=== PATIENT | female | born 1970 | race Caucasian/White ===

== ENCOUNTER 2018-12-14 12:40 | Observation (INO) | payer SELFPAY ==
[2018-12-14 13:09] LABS: Absolute Lymphocytes (CBC) 1.9 K/uL (0.7-4.9); Basophils % 0.5 % (0-1.3); Eosinophils % 0.9 % (0-4.4); Hematocrit 38.8 % (36.0-45.0); Lymphocytes % 27.1 % (15.3-44.8); MPV 9.3 fL (7.6-11.3); Monocytes % 7.7 % (3.3-12.3); RBC Red Blood Cell Count 4.02 M/uL (3.86-4.86)
[2018-12-14 13:10] LABS: Protime INR 0.89
--- NOTE | 2018-12-14 13:11 | RAD REPORT ---
EXAM DESCRIPTION: RAD - Chest Single View - 12/14/2018 1:06 pm CLINICAL HISTORY: CHEST PAIN Chest pain. COMPARISON: No comparisons FINDINGS: Portable technique limits examination quality. The lungs are grossly clear. The heart is normal in size. No displaced fractures. IMPRESSION: No acute intrathoracic process suspected.
[2018-12-14 13:22] LABS: ALT/SGPT 24 U/L (12-78); AST/SGOT 15 U/L (15-37); Albumin 3.3 g/dL (3.4-5.0); Alkaline Phosphatase 70 U/L (45-117); BUN Blood Urea Nitrogen 13 mg/dL (7-18); Bicarbonate 24 mmol/L (21-32); Bilirubin Direct 0.1 mg/dL (0-0.2); Bilirubin Total 0.4 mg/dL (0.2-1.0); Glucose Level 90 mg/dL (74-106); Magnesium 2.2 mg/dL (1.8-2.4); NT PRO-BNP 337 pg/mL (<125); Potassium 4.3 mmol/L (3.5-5.1); Protein, Total 7.1 g/dL (6.4-8.2); Sodium Level 141 mmol/L (136-145); Troponin (Emerg Dept Use Only) < 0.02 ng/mL (0.0-0.045)
--- NOTE | 2018-12-14 15:27 | ER ---
Nurse's Notes [facility] Name: Amara Allen Age: 48 yrs Sex: Female : 1970 Arrival Date: 12/14/2018 Time: 12:43 Bed 7 Private MD: Diagnosis: Chest pain, unspecified Presentation: 12/14 12:44 Presenting complaint: EMS states: Substernal chest pain and SOB upon waking 30 mins hb ago. Pain started in back then radiated to chest. 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 Hx of mitral valve prolapse and cardiac stents x 3. Transition of care: patient was not received from another setting of care. Onset of symptoms was December 14, 2018. Risk Assessment: Do you want to hurt yourself or someone else? Patient reports no desire to harm self or others. Initial Sepsis Screen: Does the patient meet any 2 criteria? No. Patient's initial sepsis screen is negative. Does the patient have a suspected source of infection? No. Patient's initial sepsis screen is negative. Care prior to arrival: Medication(s) given: ASA, 325 mg, Nitroglycerin, x 2, IV initiated. 18 GA, in the right antecubital area, Glucose check: 121. 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 - Social history:: Smoking status: Patient uses tobacco products, smokes one pack cigarettes per day. - Ebola Screening: : No symptoms or risks identified at this time. Screenin:45 Abuse screen: Denies threats or abuse. Denies injuries from another. Nutritional sv screening: No deficits noted. Tuberculosis screening: No symptoms or risk factors identified. Fall Risk None identified. Assessment: 12:45 General: Appears in no apparent distress. Behavior is calm, cooperative. Pain: hb Complains of pain in back and chest Pain radiates to chest Pain began 30 min ago. Neuro: Level of Consciousness is awake, alert, obeys commands, Oriented to person, place, time, situation. Cardiovascular: Heart tones S1 S2 present Capillary refill < 3 seconds Patient's skin is warm and dry. Respiratory: Airway is patent Respiratory effort is even, unlabored, Respiratory pattern is regular, symmetrical, Breath sounds are clear bilaterally. GI: No signs and/or symptoms were reported involving the gastrointestinal system. : No signs and/or symptoms were reported regarding the genitourinary system. EENT: No signs and/or symptoms were reported regarding the EENT system. Derm: Skin is intact, is healthy with good turgor, Skin is pink, warm \T\ dry. normal. Musculoskeletal: No signs and/or symptoms reported regarding the musculoskeletal system. 13:30 Reassessment: Patient appears in no apparent distress at this time. Patient and/or hb family updated on plan of care and expected duration. Pain level reassessed. Patient is alert, oriented x 3, equal unlabored respirations, skin warm/dry/pink. 14:30 Reassessment: Patient appears in no apparent distress at this time. Patient and/or hb family updated on plan of care and expected duration. Pain level reassessed. Patient is alert, oriented x 3, equal unlabored respirations, skin warm/dry/pink. 15:30 Reassessment: Pt c/o pain 8/10, ROZINA Lee notified at bedside, nitro x1 administered as hb ordered. Admission ordered, awaiting room assignment at this time. Family remains at bedside. 16:27 Reassessment: Patient appears in no apparent distress at this time. Patient and/or hb family updated on plan of care and expected duration. Pain level reassessed. Patient is alert, oriented x 3, equal unlabored respirations, skin warm/dry/pink. Vital Signs: 12:48 BP 164 / 94; Pulse 62; Resp 17; Temp 97.9; Pulse Ox 100% on R/A; Weight 62.14 kg; hb Height 5 ft. 1 in. (154.94 cm); Pain 9/10; 13:45 BP 144 / 81; Pulse 62; Resp 15; Pulse Ox 100% on R/A; Pain 5/10; hb 14:56 BP 163 / 78; Pulse 63; Resp 15; Pulse Ox 100% on R/A; hb 16:00 BP 129 / 63; Pulse 66; Resp 16; Pulse Ox 100% ; Pain 4/10; hb 12:48 Body Mass Index 25.89 (62.14 kg, 154.94 cm) hb ED Course: 12:40 Initial lab(s) drawn, by me, sent to lab. Maintain EMS IV. Dressing intact. Good blood sv return noted. Site clean \T\ dry. Gauge \T\ site: 18G R AC. 12:43 Patient arrived in ED. hb 12:44 Laureen Carranza, RN is Primary Nurse. hb 12:45 Jesus Fletcher PA is PHCP. jr8 12:45 Adalberto Agosto MD is Attending Physician. jr8 12:45 Patient maintains SpO2 saturation greater than 95% on room air. hb 12:45 Patient has correct armband on for positive identification. Placed in gown. Bed in low sv position. Call light in reach. Side rails up X 1. 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 Pulse ox on. NIBP on. Door closed. Warm blanket given. Head of bed elevated. 12:48 Triage completed. hb 12:48 Arm band placed on. hb 13:05 X-ray completed. Portable x-ray completed in exam room. Patient tolerated procedure mh1 well. 13:06 XRAY Chest (1 view) In Process Unspecified. EDMS 13:32 Awaiting re-evaluation by ER provider. sv 15:26 Theresa Heard MD is Hospitalizing Provider. jr8 16:27 No provider procedures requiring assistance completed. Patient admitted, IV remains in hb place. Administered Medications: 15:30 Drug: Nitroglycerin 0.4 mg Route: Sublingual; hb Outcome: 15:27 Decision to Hospitalize by Provider. jr8 16:27 Admitted to [facility] hb 16:27 Condition: stable 16:27 Instructed on the need for admit, Demonstrated understanding of instructions. 16:35 Patient left the ED. hb Signatures: Dispatcher [employer] EDMS Filomena West, DIANE RN Agata Mcknight 1 Jesus Fletcher PA PA jr8 Laureen Carranza RN RN hb Corrections: (The following items were deleted from the chart) 12:52 12:44 Care prior to arrival: Medication(s) given: ASA, 325 mg, Nitroglycerin, x 2, IV hb initiated. 20 GA, in the right antecubital area, Glucose check: 121 hb 14:49 13:45 BP 144 / 81; Pulse 162bpm; Resp 15bpm; Pulse Ox 100% RA; Pain 5/10; hb hb
--- NOTE | 2018-12-14 15:27 | EDPHYS ---
Physician Documentation [facility] Name: Amara Allen Age: 48 yrs Sex: Female : 1970 Arrival Date: 12/14/2018 Time: 12:43 Bed 7 Private MD: ED Physician Adalberto Agosto HPI: 12/14 15:24 This 48 yrs old Female presents to ER via EMS with complaints of Chest Pain. jr8 15:24 The patient or guardian reports chest pain that is located primarily in the anterior jr8 chest wall, left. Onset: acutely, today. The pain radiates to the left scapula. Associated signs and symptoms: Pertinent positives: shortness of breath. The chest pain is described as a heaviness, a pressure, sharp. Duration: The patient or guardian reports a single episode, that is still ongoing. Modifying factors: The symptoms are alleviated by nothing. the symptoms are aggravated by nothing. Severity of pain: At its worst the pain was moderate in the emergency department the pain has improved mildly. EMS care prior to arrival includes: aspirin, nitroglycerin, x 1, with partial relief of the chest pain. The patient has experienced a previous episode. The patient has not recently seen a physician. 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 - Social history:: Smoking status: Patient uses tobacco products, smokes one pack cigarettes per day. - Ebola Screening: : No symptoms or risks identified at this time. ROS: 15:24 Eyes: Negative for injury, pain, redness, and discharge, ENT: Negative for injury, jr8 pain, and discharge, Neck: Negative for injury, pain, and swelling, Abdomen/GI: Negative for abdominal pain, nausea, vomiting, diarrhea, and constipation, Back: Negative for injury and pain, MS/Extremity: Negative for injury and deformity, Skin: Negative for injury, rash, and discoloration, Neuro: Negative for headache, weakness, numbness, tingling, and seizure. 15:24 Cardiovascular: Positive for chest pain, Negative for edema, orthopnea, palpitations, paroxysmal nocturnal dyspnea. 15:24 Respiratory: Positive for shortness of breath. Exam: 15:24 Eyes: Pupils equal round and reactive to light, extra-ocular motions intact. Lids and jr8 lashes normal. Conjunctiva and sclera are non-icteric and not injected. Cornea within normal limits. Periorbital areas with no swelling, redness, or edema. ENT: Nares patent. No nasal discharge, no septal abnormalities noted. Tympanic membranes are normal and external auditory canals are clear. Oropharynx with no redness, swelling, or masses, exudates, or evidence of obstruction, uvula midline. Mucous membranes moist. Neck: Trachea midline, no thyromegaly or masses palpated, and no cervical lymphadenopathy. Supple, full range of motion without nuchal rigidity, or vertebral point tenderness. No Meningismus. Chest/axilla: Normal chest wall appearance and motion. Nontender with no deformity. No lesions are appreciated. Cardiovascular: Regular rate and rhythm with a normal S1 and S2. No gallops, murmurs, or rubs. Normal PMI, no JVD. No pulse deficits. Respiratory: Lungs have equal breath sounds bilaterally, clear to auscultation and percussion. No rales, rhonchi or wheezes noted. No increased work of breathing, no retractions or nasal flaring. Abdomen/GI: Soft, non-tender, with normal bowel sounds. No distension or tympany. No guarding or rebound. No evidence of tenderness throughout. Back: No spinal tenderness. No costovertebral tenderness. Full range of motion. Skin: Warm, dry with normal turgor. Normal color with no rashes, no lesions, and no evidence of cellulitis. MS/ Extremity: Pulses equal, no cyanosis. Neurovascular intact. Full, normal range of motion. Neuro: Awake and alert, GCS 15, oriented to person, place, time, and situation. Cranial nerves II-XII grossly intact. Motor strength 5/5 in all extremities. Sensory grossly intact. Cerebellar exam normal. Normal gait. Vital Signs: 12:48 BP 164 / 94; Pulse 62; Resp 17; Temp 97.9; Pulse Ox 100% on R/A; Weight 62.14 kg; hb Height 5 ft. 1 in. (154.94 cm); Pain 9/10; 13:45 BP 144 / 81; Pulse 62; Resp 15; Pulse Ox 100% on R/A; Pain 5/10; hb 14:56 BP 163 / 78; Pulse 63; Resp 15; Pulse Ox 100% on R/A; hb 16:00 BP 129 / 63; Pulse 66; Resp 16; Pulse Ox 100% ; Pain 4/10; hb 12:48 Body Mass Index 25.89 (62.14 kg, 154.94 cm) hb MDM: 12:45 Patient medically screened. jr8 15:24 The patient was not given aspirin in the Emergency Department. Administered by EMS. jr8 Data reviewed: vital signs, nurses notes, lab test result(s), EKG, radiologic studies, plain films. Data interpreted: monitor tech: rate is 64 beats/min, rhythm is normal sinus rhythm, regular, with no ectopy, Interpretation: normal rate, normal rhythm, Pulse oximetry: on room air is 100 %. Interpretation: normal. Counseling: I had a detailed discussion with the patient and/or guardian regarding: the historical points, exam findings, and any diagnostic results supporting the discharge/admit diagnosis, lab results, radiology results, the need for further work-up and treatment in the hospital. ED course: Dr. Heard consulted and will see patient . 12/14 12:44 Order name: Basic Metabolic Panel; Complete Time: 13:43 [facility] 12/14 12:44 Order name: CBC with Diff; Complete Time: 13:16 [facility] 12/14 12:44 Order name: LFT's; Complete Time: 13:43 [facility] 12/14 12:44 Order name: Magnesium; Complete Time: 13:43 [facility] 12/14 12:44 Order name: NT PRO-BNP; Complete Time: 13:43 12/14 12:44 Order name: PT-INR; Complete Time: 13:16 [facility] 12/14 12:44 Order name: Troponin (emerg Dept Use Only); Complete Time: 13:43 [facility] 12/14 12:44 Order name: XRAY Chest (1 view); Complete Time: 13:16 [facility] 12/14 12:44 Order name: EKG; Complete Time: 12:47 [facility] 12/14 12:44 Order name: Cardiac monitoring; Complete Time: 13:31 [facility] 12/14 12:44 Order name: EKG - Nurse/Tech; Complete Time: 13:31 tr5 12/14 12:44 Order name: IV Saline Lock; Complete Time: 13:32 tr5 12/14 12:44 Order name: Labs collected and sent; Complete Time: 13:32 tr5 12/14 12:44 Order name: O2 Per Protocol; Complete Time: 13:32 tr5 12/14 12:44 Order name: O2 Sat Monitoring; Complete Time: 13:32 tr5 Administered Medications: 15:30 Drug: Nitroglycerin 0.4 mg Route: Sublingual; hb Disposition: 17:15 Co-signature as Attending Physician, Adalberto Agsoto MD I agree with the assessment and kdr plan of care. Disposition: 12/14/18 15:27 Hospitalization ordered by Theresa Heard for Observation. Preliminary diagnosis is Chest pain, unspecified. - Bed requested for Telemetry/MedSurg (observation). - Status is Observation. hb - Condition is Stable. - Problem is new. - Symptoms have improved. UTI on Admission? No Signatures: Dispatcher [employer] EDPA Adalberto Agosto MD MD [facility] Anjelica Lentz ms Jesus Fletcher PA PA jr8 Laureen Carranza RN RN Jcarlos Sellers RN RN tr5 Corrections: (The following items were deleted from the chart) 16:06 15:27 Hospitalization Ordered by Theresa Heard MD for Observation. Preliminary diagnosis ms is Chest pain, unspecified. Bed requested for Telemetry/MedSurg (observation). Status is Observation. Condition is Stable. Problem is new. Symptoms have improved. UTI on Admission? No. jr8 16:06 16:06 12/14/2018 15:27 Hospitalization Ordered by Theresa Heard MD for Observation. ms Preliminary diagnosis is Chest pain, unspecified. Bed requested for Telemetry/MedSurg (observation). Status is Observation. Condition is Stable. Problem is new. Symptoms have improved. UTI on Admission? No. ms 16:35 16:06 12/14/2018 15:27 Hospitalization Ordered by Theresa Heard MD for Observation. hb Preliminary diagnosis is Chest pain, unspecified. Bed requested for Telemetry/MedSurg (observation). Status is Observation. Condition is Stable. Problem is new. Symptoms have improved. UTI on Admission? No. ms
[2018-12-14] MEDS ORDERED: NITROGLYCERIN 0.4 MG/TAB SL ONE (15:43)
--- NOTE | 2018-12-14 16:23 | EKG ---
Test Date: 2018-12-14 Test Time: 12:40:46 Medical Equipment Repairer: MEASUREMENT RESULTS: Intervals: Rate: 65 CO: 170 QRSD: 102 QT: 404 QTc: 420 [place]en: P: 74 CO: 170 QRS: 23 T: 29 INTERPRETIVE STATEMENTS: Normal sinus rhythm Normal ECG No previous ECG available for comparison Electronically Signed On 12-14-18 16:22:48 CDT by Joe Griffin
[2018-12-14] MEDS ORDERED: NITROGLYCERIN 0.4 MG/TAB SL PRN (16:53)
[2018-12-14] MEDS ORDERED: ACETAMINOPHEN 500 MG TAB PO PRN (16:53)
[2018-12-14] MEDS: ENOXAPARIN 40 MG/0.4 ML SQ SCH (17:16)
[2018-12-14] MEDS: METOPROLOL TAR 25 MG TAB PO SCH (20:09)
[2018-12-14] MEDS: NICOTINE 21 MG/PAT TD SCH (20:09)
[2018-12-14] MEDS: MORPHINE 2 MG/ML SYR IV PRN (20:10)
[2018-12-14] MEDS ORDERED: ATORVASTATIN 40 MG TAB PO SCH (21:00)
[2018-12-15] MEDS: MORPHINE 2 MG/ML SYR IV PRN ×2 (00:55→07:29)
--- NOTE | 2018-12-15 03:49 | HP ---
Date of Admission: 12/14/2018 Chief Complaint: Chest pain. History Of Present Illness: The patient is a 48-year-old female with past medical history of history of coronary artery disease status post multiple catheterizations, was on medical treatment; history of hypertension, not currently on any medications; smoker, who was in her usual state of health until day of admission when the patient had sudden onset of chest pain radiating to the back associated wi th shortness of breath along with nausea. The patient denies any diaphoresis or palpitations. The p atient's symptoms were intermittent, sharp. No alleviating factors. The patient did report difficul ty taking a deep breath. The patient was brought into the ER for worsening condition. In the ER, he r workup revealed negative cardiac enzymes. EKG did not show any acute changes. WBC count was mel l. Her chest x-ray was clear. The patient was given nitroglycerin x2, which helped and therefore wa s referred for admission. When seen in the ER, she was awake, alert, oriented x3. Still complaining of some shortness of breath and chest tightness. Past Medical History: Coronary artery disease, status post catheterization x2; hypertension. Allergies: NO KNOWN DRUG ALLERGIES. Medications: The patient is supposed to be on nitroglycerin patch and metoprolol, however, currently not taking any medications. Social History: The patient smokes three-quarter of a pack per year. Has been smoking since the age of 27. The patient denies any alcohol use. The patient is , has 2 kids. Independent in her activities of daily living. Family History: The patient has significant family history of cardiac-related . Both parents d ied of MIs. Sister of [place] at age of 51. Brother of [place] at age of 39. Cousin of heart- related disease at 29. The patient reports genetic cardiac disease that runs in the family. Physical Examination: Vital Signs: Blood pressure 164/94, pulse 62, respirations 17, temperature 97.9, O2 100% on room air . General: Awake, alert, oriented x3, in some mild distress, appears older than stated age. HEENT: Normocephalic, atraumatic. PERRLA. EOMI. Moist mucous membranes. Oropharynx is clear. Co njunctivae anicteric. Neck: Supple. No JVD. Trachea midline. CV: S1, S2. Regular rate and rhythm. Peripheral pulses present. Respiratory: Moving air well bilaterally. No wheezing or stridor. No use of accessory muscles. Gastrointestinal: Abdomen is soft, nontender, nondistended. Positive bowel sounds. No guarding or rigidity. Extremities: No clubbing, cyanosis, or edema. No calf tenderness. Neuro: Cranial nerves 2 through 12 intact grossly. No focal neurological deficit. Speech is normal . Sensation intact to light touch. Skin: No rashes. Normal skin turgor. Psych: Mood is somewhat anxious. Affect is congruent with mood. Insight and judgment are good. Laboratory Data: WBC 7.2, H and H of 13 and 38.8, platelets 284, neutrophils 63%, INR is 0.89. Sodi um 141, potassium 4.3, chloride 111, CO2 24, BUN 13, creatinine 0.83, glucose 90, calcium 8.8, magnes ium 2.2. Troponin less than 0.02. BNP 337. Chest x-ray shows no acute intrathoracic process. EKG shows normal sinus rhythm, rate of 65. No previous EKG for comparison. Assessment: A 48-year-old female with: 1.Chest pain, possibly unstable angina. The patient states she has had a cardiac cath previously wa s found to have some blockage, however, did not have any stents placed. Used to see Dr. Mendez in [place]. Last heart catheterization was about 2 years ago. The patient is not currently on any medi cations at home. Did have some improvement with nitroglycerin. Continues to complain of some shortn ess of breath. We will check D-dimer to evaluate for possible pulmonary embolism. We will start her on chest pain guidelines, consult Cardiology, obtain echocardiogram. The patient has strong family history with multiple first-degree relatives with premature related to [place]. The patient has HEA RT score of 4. The patient is a smoker, has hypertension, has positive family history, age is 48. 2.Essential hypertension. We will start on ACOSTA inhibitor and beta-berlin. 3.Hyperchloremia. 4.History of coronary artery disease status post catheterization. Plan: We will admit to Med/Surg, place as observation. /WENDY Voice ID: [id number]
[2018-12-15 06:11] LABS: Absolute Lymphocytes (CBC) 2.9 K/uL (0.7-4.9); Basophils % 0.5 % (0-1.3); Eosinophils % 1.3 % (0-4.4); Hematocrit 37.4 % (36.0-45.0); Lymphocytes % 36.8 % (15.3-44.8); MPV 9.6 fL (7.6-11.3); Monocytes % 9.6 % (3.3-12.3); RBC Red Blood Cell Count 3.81 M/uL (3.86-4.86)
[2018-12-15 06:25] LABS: Potassium 4.6 mmol/L (3.5-5.1)
[2018-12-15] MEDS: NICOTINE 21 MG/PAT TD SCH (08:39)
[2018-12-15] MEDS: METOPROLOL TAR 25 MG TAB PO SCH (08:42)
[2018-12-15] MEDS: ENOXAPARIN 40 MG/0.4 ML SQ SCH (08:42)
[2018-12-15] MEDS ORDERED: ASPIRIN EC 81 MG TAB PO SCH (09:00)
[2018-12-15] MEDS ORDERED: LISINOPRIL 10 MG TAB PO SCH (09:00)
[2018-12-15] MEDS ORDERED: REGADENOSON 0.4 MG/5 ML SYR IV ONE (09:52)
--- NOTE | 2018-12-15 14:47 | RAD REPORT ---
EXAM DESCRIPTION: NM - Rest Stress Cardiac Imaging - 12/15/2018 2:41 pm CLINICAL HISTORY: Chest pain COMPARISON: None. TECHNIQUE: The patient was administered approximately 10 mCi of Tc 99m Sestamibi prior to resting SP ECT imaging of the heart. The patient was then administered approximately 30 mCi of Tc 99m Sestamibi following exercise or pharmacologic stress. Multiplanar SPECT images were reviewed. FINDINGS: The end diastolic volume is 76 ml, the end systolic volume is 32 ml, and the ejection frac tion is 58 %. No stress-induced ischemic changes are present. Minimally diminished activity is seen along the muscu lar septum and minimally into the inferior wall. Pattern is not substantially different from comparis on. IMPRESSION: No stress-induced ischemic change identifiable. No large area of infarcted myocardium se en. Ventricular volumes and ejection fraction are normal range.
--- NOTE | 2018-12-15 23:03 | CON ---
Date of Consultation: 12/14/2018 Reason For Consultation: Chest pain. History Of Present Illness: Ms. Allen is a 48-year-old woman with known history of mitral valve pr olapse. Three years ago, she had a heart catheterization and they told her she had some mild stenosi s, but a repeat catheterization later than that showed normal coronaries. These were done at [place] by Dr. Mendez. She also has a history of dyslipidemia. She came in with atypical sharp stabbing chest pain, that has been going on for about 48 hours with some nausea. No vomiting. No diaphoresis . No PND, orthopnea, pedal edema, palpitations, or syncope. Past Medical History: Otherwise negative. Allergies: NONE. Review of Systems: Negative. Social History: Negative. Family History: Noncontributory. Medications: At home are none. Physical Examination: Vital Signs: Stable. She was afebrile. HEENT: Negative. Neck: Supple without bruits. Chest: Clear to auscultation and percussion. Cardiac: Regular rhythm and rate. No murmurs, gallops, or rubs. Abdomen: Benign. Extremities: No clubbing, cyanosis, or edema. Diagnostic Data: Normal EKG. Normal x-ray. Normal troponin. Impression And Plan: 1.Atypical chest pain, most likely gastric or gastroesophageal in nature. 2.Severe mitral valve prolapse. 3.Dyslipidemia. I think an echocardiogram and a Lexiscan are indicated and they have been ordered already. We will s ee what those shows prior to making any final decisions. If they are negative, it will be worth send ing Ms. Allen home on proton pump inhibitor. NAYA/WENDY Voice ID: [id number] Report ID: [id number]
--- NOTE | 2018-12-16 00:17 | DS ---
Date of Discharge: 12/15/2018 Consultants: Dr. Norton with Cardiology. Procedures: Cardiac stress test shows no stress-induced ischemia. Discharge Diagnoses: 1.Chest pain, ACS ruled out. 2.Essential hypertension, stable. 3.Hyperchloremia, corrected. 4.Apparent history of coronary artery disease. Hospital Course: The patient is a 48-year-old female, who has high blood pressure, apparent history of coronary artery disease with mixed results, not requiring stenting as well as history of smoking a nd strong family history of multiple deaths first-degree relatives before the age of 50 due to [place], co mes in with chest pain. The patient was admitted to the hospital for further evaluation. Her cardia c enzymes were negative. ACS was ruled out. She did have a minimally elevated BNP. Her triglycerid es were elevated. LDL was 95. The patient's D-dimer was negative. Her chest x-ray was clear. The patient was seen by Cardiology, Dr. Norton and had a cardiac stress test which was negative for any stress-induced ischemia. The patient's echocardiogram did not show any abnormalities. Therefore, th e patient was cleared for discharge from a cardiac standpoint. The patient was strongly recommended to quit smoking. She voiced understanding. was present at the bedside. She understands holly t given her risk factors including family history, smoking is detrimental to her health and may lead to mortality. The patient also needs to establish care with a family physician in 2-3 days. stated that they have been following with a physician for the past 20 years as needed. 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 Norton or go back to see Dr. Mendez, who she has not seen in 2 years, I believe in [place]. The patient is to return to ER for worsening condition. Diet: Heart-healthy. Activity: As tolerated. Medications: As per medication reconciliation list. Physical Examination: General: Awake, alert, oriented x3. No acute distress. CV: S1, S2. No murmurs. Respiratory: Moving air well bilaterally. Abdomen: Soft, nontender, nondistended. Positive bowel sounds. Extremities: No clubbing, cyanosis, or edema. Neuro: Nonfocal. SA/MODL Voice ID: [id number] Report ID: [id number]
--- NOTE | 2018-12-16 07:46 | ECHO ---
HEIGHT: 5 ft 1 in WEIGHT: 151 lb 0 oz DATE OF STUDY: 12/15/[address]: Theresa Heard MD 2-DIMENSIONAL: YES M.MODE: YES DOPPLER: YES COLOR FLOW: YES TDS: NO PORTABLE: NO DEFINITY: NO BUBBLE STUDY: NO DIAGNOSIS: CHEST PAIN CARDIAC HISTORY: CATHERIZATION: YES SURGERY: NO PROSTHETIC VALVE: NO PACEMAKER: NO MEASUREMENTS (cm) DIASTOLIC (NORMALS) SYSTOLIC (NORMALS) IVSd 1.0 (0.6-1.2) LA Diam 3.6 (1.9-4.0) LVEF 66% LVIDd 4.5 (3.5-5.7) LVIDs 2.9 (2.0-3.5) %FS 36% LVPWd 1.0 (0.6-1.2) Ao Diam 2.8 (2.0-3.7) 2 DIMENSIONAL ASSESSMENT: RIGHT ATRIUM: NORMAL LEFT ATRIUM: NORMAL RIGHT VENTRICLE: NORMAL LEFT VENTRICLE: NORMAL TRICUSPID VALVE: NORMAL MITRAL VALVE: NORMAL PULMONIC VALVE: NORMAL AORTIC VALVE: NORMAL PERICARDIAL EFFUSION: NONE AORTIC ROOT: NORMAL LEFT VENTRICULAR WALL MOTION: NORMAL. DOPPLER/COLOR FLOW: NORMAL. COMMENTS: NORMAL 2D ECHO WITH DOPPLER. NO WALL MOTION ABNORMALITY. NO MITRAL VALVE PROLAPSE TECHNOLOGIST: AGNIESZKA MCMILLAN
--- NOTE | 2018-12-16 07:53 | TREADPHA ---
DX: CHEST PAIN Date of Study: 12/15/18 Ht: 5 1 Wt: 151 lb 0 oz Consulting Physician: REI MEDICATIONS: TYLENOL, ASPIRIN, LIPITOR, LOVENOX, PRINIVIL, LOPRESSOR HISTORY: 48 YEAR OLD FEMALE WITH COMPLAINTS OF CHEST PAIN. HISTORY OF HEART MURMUR, MITRAL VALVE PROLAPSE, PULMONARY STENOSIS. PHYSICIAL EXAMINATION: RESTING B.P.: 123/64 RESTING H.R.: 55 RESTING EKG: NORMAL. PROTOCOL: LEXISCAN EXERCISE TIME: 3:30 B.P. AT PEAK STRESS: 129/63 IMPRESSION: LEXISCAN INJECTED CARDIOLITE INJECTED PER PROTOCOL. SEE NUCLEAR MEDICINE REPORT. NO SUPRA VENTRICULAR TACHYCARDIA. NO VENTRICULAR TACHYCARDIA. NO PREMATURE VENTRICULAR COMPLEXES. 4/10 CHEST PAIN TIGHTNESS AFTER ADMINISTRATION OF LEXISCAN.
== END 2018-12-15 17:23 | disposition home or self-care (01) ==
LOC: ER 12:40 → ERHOLD 15:37 → 4TH 16:25
PROVIDERS: ADMIT Family Medicine; ATTEND Family Medicine
DX: R07.9 Chest pain, unspecified (principal); I10 Essential (primary) hypertension; E87.8 Other disorders of electrolyte and fluid balance, not elsewhere classified; I25.10 Atherosclerotic heart disease of native coronary artery without angina pectoris; Z87.891 Personal history of nicotine dependence; Z82.49 Family history of ischemic heart disease and other diseases of the circulatory system; I34.1 Nonrheumatic mitral (valve) prolapse; E78.5 Hyperlipidemia, unspecified
CPT/HCPCS: 36415; 71045; 78452; 80048; 80061; 80076; 83735; 83880; 84484; 85025; 85379; 85610; 93005; 93017; 93306; 94760; 99285; A9500; G0378; J1650; J2270; J2785

== ENCOUNTER 2021-12-24 09:09 | Emergency (ER) | payer SELFPAY ==
[2021-12-24 09:38] LABS: Absolute Lymphocytes (CBC) 2.2 K/uL (0.7-4.9); Hematocrit 41.7 % (36.0-45.0); Lymphocytes % 25.3 % (15.3-44.8); MCV 92.6 fL (80-100); MPV 8.4 fL (7.6-11.3)
[2021-12-24] MEDS ORDERED: MORPHINE 4 MG/ML SYR ONE (09:43)
[2021-12-24] MEDS ORDERED: ONDANSETRON 4 MG/2 ML VIAL ONE (09:43)
[2021-12-24] MEDS ORDERED: NA CHLORIDE 0.9% 500 ML ONE (09:44)
[2021-12-24] MEDS ORDERED: METOPROLOL TARTRATE 5 MG/5 ML INJ IV ONE ×2 (09:44→10:52)
[2021-12-24] MEDS ORDERED: FAMOTIDINE 20 MG/2 ML VIAL IV ONE (09:44)
[2021-12-24 10:00] LABS: Potassium 3.9 mmol/L (3.5-5.1); Troponin High Sensitivity 4.3 pg/mL (<58.9)
--- NOTE | 2021-12-24 10:36 | RAD REPORT ---
EXAM DESCRIPTION: CT - Angio Aorta For Dissection - 12/24/2021 10:25 am CLINICAL HISTORY: . Chest and abd pain COMPARISON: None TECHNIQUE: Computed tomography angiography of the chest, abdomen pelvis were obtained. 100 cc Isovue 370 was administered intravenously. Coronal and sagittal reconstruction were performed. MIP 3D reconstruction was performed All CT scans are performed using dose optimization technique as appropriate and may include automated exposure control or mA/KV adjustment according to patient size. FINDINGS: An aortic dissection is not seen. An aortic aneurysm is not displayed. The celiac, SMA and SANJAY are patent . Plaque within the left common iliac artery resulting in a moderate grade stenosis A lung consolidation is not present. A pericardial effusion is not seen. A pleural effusion is not no gurdeep. Fatty liver Spleen, pancreas,adrenals and kidneys demonstrate no significant abnormality. There no evidence diverticulitis. IMPRESSION: Negative for an aortic dissection.
--- NOTE | 2021-12-24 10:47 | RAD REPORT ---
EXAM DESCRIPTION: Edvin Single View12/24/2021 9:47 am CLINICAL HISTORY: Chest pain COMPARISON: 2019 FINDINGS: The lungs appear clear of acute infiltrate. The heart is normal size IMPRESSION: No acute abnormalities displayed
--- NOTE | 2021-12-24 13:07 | EDPHYS ---
Physician Documentation [facility] Name: Amara Santana Age: 51 yrs Sex: Female : 1970 Arrival Date: 12/24/2021 Time: 09:09 Bed 4 Private MD: ED Physician Adalberto Agosto HPI: 12/24 09:35 This 51 yrs old Female presents to ER via Ambulatory with complaints of Chest Pain. kdr 09:35 The patient or guardian reports chest pain that is located primarily in the substernal kdr area. Onset: yesterday. The pain radiates to back. Associated signs and symptoms: Pertinent positives: dizziness, lightheadedness, nausea, shortness of breath. The chest pain is described as aching, burning, dull. Duration: The patient or guardian reports a single episode, that is still ongoing. Severity of pain: At its worst the pain was moderate severe. The patient has experienced similar episodes in the past, a few times, but today's symptoms are worse. The patient has not recently seen a physician. 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 - Social history:: Smoking status: Patient reports the use of cigarette tobacco products, smokes one-half pack cigarettes per day. ROS: 09:35 Constitutional: Negative for fever, chills, and weight loss, Eyes: Negative for injury, kdr pain, redness, and discharge, ENT: Negative for injury, pain, and discharge, Neck: Negative for injury, pain, and swelling, Respiratory: Negative for shortness of breath, cough, wheezing, and pleuritic chest pain, Abdomen/GI: Negative for abdominal pain, nausea, vomiting, diarrhea, and constipation, Back: Negative for injury and pain, : Negative for injury, bleeding, discharge, and swelling, MS/Extremity: Negative for injury and deformity, Skin: Negative for injury, rash, and discoloration, Neuro: Negative for headache, weakness, numbness, tingling, and seizure activity. Psych: Negative for depression, anxiety, suicide ideation, homicidal ideation, and hallucinations, Allergy/Immunology: Negative for hives, rash, and allergies, Endocrine: Negative for neck swelling, polydipsia, polyuria, polyphagia, and marked weight changes, Hematologic/Lymphatic: Negative for swollen nodes, abnormal bleeding, and unusual bruising. 09:35 Cardiovascular: Positive for chest pain, Negative for edema, orthopnea, palpitations, paroxysmal nocturnal dyspnea. Exam: 09:35 Constitutional: This is a well developed, well nourished patient who is awake, alert, kdr and in no acute distress. Head/Face: Normocephalic, atraumatic. Eyes: Pupils equal round and reactive to light, extra-ocular motions intact. Lids and lashes normal. Conjunctiva and sclera are non-icteric and not injected. Cornea within normal limits. Periorbital areas with no swelling, redness, or edema. Neck: Trachea midline, no thyromegaly or masses palpated, and no cervical lymphadenopathy. Supple, full range of motion without nuchal rigidity, or vertebral point tenderness. No Meningismus. Chest/axilla: Normal chest wall appearance and motion. Nontender with no deformity. No lesions are appreciated. Cardiovascular: Regular rate and rhythm with a normal S1 and S2. No gallops, murmurs, or rubs. Normal PMI, no JVD. No pulse deficits. Respiratory: Lungs have equal breath sounds bilaterally, clear to auscultation and percussion. No rales, rhonchi or wheezes noted. No increased work of breathing, no retractions or nasal flaring. Abdomen/GI: Soft, non-tender, with normal bowel sounds. No distension or tympany. No guarding or rebound. No evidence of tenderness throughout. Back: No spinal tenderness. No costovertebral tenderness. Full range of motion. Skin: Warm, dry with normal turgor. Normal color with no rashes, no lesions, and no evidence of cellulitis. MS/ Extremity: Pulses equal, no cyanosis. Neurovascular intact. Full, normal range of motion. Neuro: Awake and alert, GCS 15, oriented to person, place, time, and situation. Cranial nerves II-XII grossly intact. Motor strength 5/5 in all extremities. Sensory grossly intact. Cerebellar exam normal. Normal gait. Psych: Awake, alert, with orientation to person, place and time. Behavior, mood, and affect are within normal limits. Vital Signs: 09:11 BP 198 / 101; Pulse 86; Resp 16; Temp 97.5(TE); Pulse Ox 100% on R/A; Weight 74.39 kg; ss Height 5 ft. 1 in. (154.94 cm); Pain 8/10; 09:45 BP 186 / 86; Pulse 78; Resp 16 S; Pulse Ox 96% on R/A; aa5 10:06 BP 172 / 78; Pulse 65; Resp 16 S; Pulse Ox 98% on R/A; aa5 10:45 BP 175 / 96; Pulse 64; Resp 16 S; Pulse Ox 98% on R/A; Pain 2/10; aa5 10:50 BP 167 / 80; Pulse 58; Resp 16 S; Pulse Ox 97% on R/A; aa5 11:15 BP 166 / 87; Pulse 56; Resp 16 S; Pulse Ox 97% on R/A; aa5 12:35 BP 153 / 96; Pulse 54; Resp 14 S; Pulse Ox 97% on R/A; aa5 09:11 Body Mass Index 30.99 (74.39 kg, 154.94 cm) ss MDM: 09:35 Data reviewed: vital signs, nurses notes, lab test result(s), radiologic studies. kdr Counseling: I had a detailed discussion with the patient and/or guardian regarding: the historical points, exam findings, and any diagnostic results supporting the discharge/admit diagnosis, lab results, radiology results. 13:06 Patient medically screened. [facility] 12/24 09:20 Order name: Basic Metabolic Panel; Complete Time: 11:40 kdr 12/24 09:20 Order name: CBC with Diff; Complete Time: 11:40 kdr 12/24 09:20 Order name: Troponin HS; Complete Time: 11:40 kdr 12/24 09:20 Order name: XRAY Chest (1 view); Complete Time: 11:40 kdr 12/24 09:27 Order name: CT Aorta for Dissection; Complete Time: 11:40 kdr 12/24 11:40 Order name: Troponin High Sensitivity; Complete Time: 13:05 kdr 12/24 09:20 Order name: EKG; Complete Time: 09:21 kdr 12/24 09:20 Order name: Cardiac monitoring; Complete Time: 09:33 kdr 12/24 09:20 Order name: EKG - Nurse/Tech; Complete Time: 09:26 kdr 12/24 09:20 Order name: IV Saline Lock; Complete Time: :33 kdr 12/24 09:20 Order name: Labs collected and sent; Complete Time: :33 kdr 12/24 09:20 Order name: O2 Per Protocol; Complete Time: 09: kdr 12/24 09:20 Order name: O2 Sat Monitoring; Complete Time: : kdr Administered Medications: 09:42 Drug: Zofran (Ondansetron) 4 mg Route: IVP; Site: right antecubital; aa5 10:09 Follow up: Response: No adverse reaction aa5 09:42 Drug: NS 0.9% 500 ml Route: IV; Rate: bolus; Site: right antecubital; aa5 10:45 Follow up: IV Status: Completed infusion aa5 09:44 Drug: morphine 4 mg Route: IVP; Infused Over: 4 mins; Site: right antecubital; aa5 10:09 Follow up: Response: No adverse reaction aa5 09:44 Drug: Pepcid (famotidine) 20 mg Route: IVP; Site: right antecubital; aa5 10:09 Follow up: Response: No adverse reaction aa5 09:47 Drug: Lopressor (metoprolol) 5 mg {Note: VO to only administer 1 dose at this time and aa5 hold other doses at this time..} Route: IVP; Site: right antecubital; 10:09 Follow up: Response: Blood pressure is lowered aa5 10:45 Drug: Lopressor (metoprolol) 5 mg Route: IVP; Site: right antecubital; aa5 10:50 Follow up: 3rd dose not given, HR 58 aa5 Disposition Summary: 12/24/21 13:06 Discharge Ordered Location: Home kdr Problem: new kdr Symptoms: have improved kdr Condition: Stable kdr Diagnosis - Chest pain, unspecified kdr Followup: kdr - With: Private Physician - When: 2 - 3 days - Reason: If symptoms return, Further diagnostic work-up, Recheck today's complaints, Continuance of care, Re-evaluation by your physician Discharge Instructions: - Discharge Summary Sheet kdr - Nonspecific Chest Pain, Adult, [id number] kdr Forms: - Medication Reconciliation Form kdr - Thank You Letter kdr Signatures: Dispatcher [employer] ALVARADO Agosto Adalberto, MD MD kdr Roxana Martinez, RN RN aa5 Jocelin Valdez RN RN ss
--- NOTE | 2021-12-24 13:07 | ER ---
Nurse's Notes [facility] Name: Amara Santana Age: 51 yrs Sex: Female : 1970 Arrival Date: 12/24/2021 Time: 09:09 Bed 4 Private MD: Diagnosis: Chest pain, unspecified Presentation: 12/24 09:10 Chief complaint: Patient states: chest discomfort that began last night with nausea. ss Coronavirus screen: Client denies travel out of the [place] in the last 14 days. Ebola Screen: Patient denies exposure to infectious person. Patient denies travel to an Ebola-affected area in the 21 days before illness onset. Initial Sepsis Screen: Does the patient meet any 2 criteria? No. Patient's initial sepsis screen is negative. Does the patient have a suspected source of infection? No. Patient's initial sepsis screen is negative. Risk Assessment: Do you want to hurt yourself or someone else? Patient reports no desire to harm self or others. Onset of symptoms was December 23, 2021. 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 - Social history:: Smoking status: Patient reports the use of cigarette tobacco products, smokes one-half pack cigarettes per day. Screenin:45 Abuse screen: Denies threats or abuse. Nutritional screening: No deficits noted. aa5 Tuberculosis screening: No symptoms or risk factors identified. Fall Risk IV access (20 points). Total Sargent Fall Scale indicates No Risk (0-24 pts). Assessment: 09:15 General: Appears uncomfortable, Behavior is calm, cooperative. Pain: Complains of pain aa5 in chest Pain radiates to back Pain currently is 8 out of 10 on a pain scale. Quality of pain is described as sharp, squeezing, Pain began 2-3 weeks ago Is intermittent. Neuro: Level of Consciousness is awake, alert, obeys commands, Oriented to person, place, time, situation. Cardiovascular: Heart tones S1 S2 present Rhythm is sinus rhythm. Respiratory: Airway is patent Respiratory effort is even, unlabored, Respiratory pattern is regular, symmetrical, Breath sounds are clear bilaterally. GI: Abdomen is round non-distended, Bowel sounds present X 4 quads. Abd is soft and non tender X 4 quads. Reports nausea, Patient currently denies diarrhea, vomiting. : No signs and/or symptoms were reported regarding the genitourinary system. EENT: No signs and/or symptoms were reported regarding the EENT system. Derm: Skin is pink, warm \T\ dry. Musculoskeletal: Range of motion: intact in all extremities. 10:24 Reassessment: Pt in radiology. aa5 10:45 Reassessment: Patient is alert, oriented x 3, equal unlabored respirations, skin aa5 warm/dry/pink. Patient states feeling better. Patient states symptoms have improved. Pain: Pain currently is 2 out of 10 on a pain scale. 12:35 Reassessment: Pt resting in bed with eyes closed, easy to awaken to verbal stimuli, aa5 rates pain 5/10 at this time, states no need for pain medication at this time. . 12:37 Reassessment: Repeat troponin drawn and sent to lab . aa5 15:04 Reassessment: Patient appears in no apparent distress at this time. Patient and/or jd3 family updated on plan of care and expected duration. Pain level reassessed. Patient is alert, oriented x 3, equal unlabored respirations, skin warm/dry/pink. Vital Signs: 09:11 BP 198 / 101; Pulse 86; Resp 16; Temp 97.5(TE); Pulse Ox 100% on R/A; Weight 74.39 kg; ss Height 5 ft. 1 in. (154.94 cm); Pain 8/10; 09:45 BP 186 / 86; Pulse 78; Resp 16 S; Pulse Ox 96% on R/A; aa5 10:06 BP 172 / 78; Pulse 65; Resp 16 S; Pulse Ox 98% on R/A; aa5 10:45 BP 175 / 96; Pulse 64; Resp 16 S; Pulse Ox 98% on R/A; Pain 2/10; aa5 10:50 BP 167 / 80; Pulse 58; Resp 16 S; Pulse Ox 97% on R/A; aa5 11:15 BP 166 / 87; Pulse 56; Resp 16 S; Pulse Ox 97% on R/A; aa5 12:35 BP 153 / 96; Pulse 54; Resp 14 S; Pulse Ox 97% on R/A; aa5 09:11 Body Mass Index 30.99 (74.39 kg, 154.94 cm) ED Course: 09:09 Patient arrived in ED. rg4 09:11 Triage completed. ss 09:11 Arm band placed on right wrist. ss 09:15 Roxana Martinez, RN is Primary Nurse. aa5 09:15 Client placed on continuous cardiac and pulse oximetry monitoring. NIBP monitoring aa5 applied. 09:15 Patient has correct armband on for positive identification. Placed in gown. Bed in low aa5 position. Call light in reach. Side rails up X2. 09:20 Adalberto gAosto MD is Attending Physician. kdr 09:26 EKG done, by ED staff, reviewed by Adalberto Agosto MD. ss 09:45 Initial lab(s) drawn, by mi, sent to lab. Inserted saline lock: 20 gauge in right aa5 antecubital area, using aseptic technique. Blood collected. 09:45 Patient maintains SpO2 saturation greater than 95% on room air. aa5 09:48 XRAY Chest (1 view) In Process Unspecified. EDMS 10:27 CT Aorta for Dissection In Process Unspecified. EDMS 14:59 No provider procedures requiring assistance completed. IV discontinued, intact, jd3 bleeding controlled, No redness/swelling at site. Pressure dressing applied. Administered Medications: 09:42 Drug: Zofran (Ondansetron) 4 mg Route: IVP; Site: right antecubital; aa5 10:09 Follow up: Response: No adverse reaction aa5 09:42 Drug: NS 0.9% 500 ml Route: IV; Rate: bolus; Site: right antecubital; aa5 10:45 Follow up: IV Status: Completed infusion aa5 09:44 Drug: morphine 4 mg Route: IVP; Infused Over: 4 mins; Site: right antecubital; aa5 10:09 Follow up: Response: No adverse reaction aa5 09:44 Drug: Pepcid (famotidine) 20 mg Route: IVP; Site: right antecubital; aa5 10:09 Follow up: Response: No adverse reaction aa5 09:47 Drug: Lopressor (metoprolol) 5 mg {Note: VO to only administer 1 dose at this time and aa5 hold other doses at this time..} Route: IVP; Site: right antecubital; 10:09 Follow up: Response: Blood pressure is lowered aa5 10:45 Drug: Lopressor (metoprolol) 5 mg Route: IVP; Site: right antecubital; aa5 10:50 Follow up: 3rd dose not given, HR 58 aa5 Medication: 15:04 VIS not applicable for this client. jd3 Intake: Outcome: 13:06 Discharge ordered by . kdr 15:04 Discharged to home ambulatory, with family. jd3 15:04 Condition: stable 15:04 Discharge instructions given to patient, family, Instructed on discharge instructions, follow up and referral plans. Demonstrated understanding of instructions, follow-up care. 15:05 Patient left the ED. jd3 Signatures: Dispatcher [employer] EDMS Adalberto Agosto MD MD kdr Calderon, Audri RN RN aa5 Jocelin Valdez RN RN ss Garcia, Rubi 4 Dionicio Drake RN RN jd3 Corrections: (The following items were deleted from the chart) 10:49 09:15 Pain: Complains of pain in chest Pain currently is 8 out of 10 on a pain scale. aa5 Quality of pain is described as sharp, Pain began 2-3 weeks ago Is intermittent, aa5 12:41 09:47 Lopressor (metoprolol) 5 mg IVP in right antecubital aa5 aa5 20:36 10:15 IV Status: Completed infusion aa5 aa5
[2021-12-24 15:34] VITALS: TEMP 98.6
[2021-12-24 15:39] VITALS: BP 147/96; O2SAT 99
--- NOTE | 2021-12-25 13:55 | EKG ---
Test Date: 2021-12-24 Test Time: 09:20:45 Purchasing Administrator: SHANA MEASUREMENT RESULTS: Intervals: Rate: 75 [place]: 168 QRSD: 114 QT: 394 QTc: 439 [place]: P: 77 [place]: 168 QRS: 2 T: 30 INTERPRETIVE STATEMENTS: Normal sinus rhythm Normal ECG No previous ECG available for comparison Electronically Signed On 12-25-21 13:51:45 CDT by Baudilio Fitch
== END 2021-12-24 15:05 | disposition home or self-care (01) ==
LOC: ER 09:09
DX: R07.9 Chest pain, unspecified (principal); I34.1 Nonrheumatic mitral (valve) prolapse; F17.210 Nicotine dependence, cigarettes, uncomplicated
CPT/HCPCS: 36415; 71045; 71275; 74175; 80048; 84484; 85025; 93005; J2405; J3490; J7040; Q9967

== ENCOUNTER 2023-07-11 23:46 | Observation (INO) | payer OTHER, SELFPAY ==
--- OUTSIDE RECORDS SUMMARY | 2023-07-11 23:49 | XMS REPORT | Continuity of Care Document ---
Author Name Unknown Address [address] [facility] [address] thconnect Address [address] [facility] 1 495 [place] [address] Care Team Providers Care Trailer Rental Clerk Name Role Phone Davey Hawley Attending Clinician Unavailable Physician, No Primary or Family Admitting Clinic pedro Unavailable Davey Hawley Admitting Clinician Unavailable Payers Payer Name Policy Type Policy Number Effective Date Expirati on Date Source Allergies, Adverse Reactions, Alerts Allergy Name Allergy Type Status Severity Reaction(s) Onset Date Inactive Date Treating Clinician Comments Source No Known Allergie s DA Active 07-19 00:00: 00 [facility] No Known Allergie s DA Active 07-19 00:00: 00 [facility] Encounters Start Date/Time End Date/Time Encounter Type Admission Type Attending Clinicians Care Facility Care Department Encounter ID Source 2019-07-21 20:57:00 Inpatient [facility] ELIJAH [id number] [facility] 2019-07-27 10:00:00 2019-07-27 10:00:00 Outpatient Davey Hawley [facility] ELLA [id number] [facility] Results Test Description Test Time Test Comments Results Resul t Comments Source UTERUS,OTHER THAN PROLAPSE/MILAGROS 2019-07-28 15:48:00 --------RUN DATE: 07/28/19 [facility] PAGE 1 RUN TIME: 1754 Specimen Inquiry RUN USER: INTERFACE --------PATIENT: KAMRAN SANTANA LOC: [facility] #: [id number] AGE/SX: 48/F ROOM: [facility] RE07/27/19REG DR: Davey Hawley III, MD : 70 BED: A DIS: 07/27/19 STATUS: DIS Raji TLOC: -------- SPEC #: [id number] RECD: 07/27/19 STATUS: SOUT REQ #: [id number] JANICE: 07/27/19- SUBM DR: Davey Hawley III, MD ENTERED: 07/27/19 SP TYPE: UTERUSOTH OTHR DR: ORDERED: LEVEL V SURGICA CODES: U81401 - UTERUS, NOS PROCEDURES: LEVEL V SURGICA (Incomplete) TISSUES: UTERUS, NOS - UTERUS, CERVIX AND BILATERAL FALLOPIAN TUBES CLINICAL HISTORY 48 year old, fibroids, anemia (wpd) FINAL DIAGNOSIS Uterus, hysterectomy: cervix - no pathologic diagnosis endometrium - proliferative pattern myometrium - foci of adenomyosis serosa - a few fibrous adhesions right fallopian tube - benign paratubal cyst - status post tubal ligation left fallopian tube - multiple benign paratubal cysts - status tubal ligation CPT code(s): 23023 cds/wpd 07/28/19 GROSS DESCRIPTION ANATOMIC SOURCE OF TISSUE (per Requisition): Uterus, cervix, bilateral tubes The specimen is received in formalin in a container, labeled with the patient's name and designated "uterus, cervix, bilateral tubes". The specimen consists of a 130 gm, 10.0 x 6.5 x 5.0 cm intact uterus with an attached cervix and previously ligated fimbriated fallopian tubes (right 6.5 cm in length and left 6.5 cm in length). The uterine serosa is salcido-pink and slightly nodular with a few adhesions. The 4.0 cm ectocervix displays a central 1 cm slit-like os. The endometrium is salcido-red and hemorrhagic with a thickness measuring up to 0.1 cm. The myometrium is trabeculated with a wall thickness measuring up to 2.4 cm. There are a few hemorrhagic myometrial cysts, 0.1 - 0.2 cm. There are no nodules. CONTINUED ON NEXT PAGE --------RUN DATE: 07/28/19 [facility] PAGE 2 RUN TIME: 1754 Specimen Inquiry RUN USER: INTERFACE --------SPEC #: [id number] PATIENT: KAMRAN SANTANA #[id number] (Continued) GROSS DESCRIPTION (Continued) The fallopian tubes are pink-purple and hyperemic with pinpoint lumens. The left fallopian tube displays a 0.8 cm clear, serous fluid-filled unremarkable paratubal cyst. Section code: A1 - cervix, A2 - anterior endomyometrium, A3 - posterior endomyometrium, A4 - myometrial cysts and serosal adhesions, A5 - licensing representative sections of right fallopian tube, A6 - licensing representative sections of left fallopian tube. micky 07/27/19 Signed Heber Castillo 07/28/19 1548 -------- END OF REPORT UR HCG [id number] 07:07:00* Test Item Value Reference Range Interpretation Comme nts UR HCG QUAL (test code = HCGQLU) NEGATIVE 1. Very dilute u rine specimens, as indicated by a lowspecific gravity, may not contain licensing representative levels ofhCG. 2. False negative results may occur when the levels of hCGare below the sensitivity level of the test. If is still suspected, a first morningurine specimen should be collected 48 hours later andtested. CBC W/AUTO [id number] 22:28:00* Test Item Value Reference Range Interpretation Comme nts WHITE BLOOD CELL (test code = WBC) 7.9 K/mm3 6.6-12.1 N RED BLOOD CELL (test code = RBC) 3.15 M/mm3 3.45-5.01 L HEMOGLOBIN (test code = HGB) 7.9 g/dL 10.7-13.9 L HEMATOCRIT (test code = HCT) 27.7 % 32.1-42.1 L MEAN CELL VOLUME (test code = MCV) 88 fL 84.1-94.8 N MEAN CELL HGB (test code = MCH) 25.1 pg 27-35 L MEAN CELL HGB CONCETRATION (test code = MCHC) 28.5 gm/dL 32.2-34.1 L RED CELL DISTRIBUTION WIDTH (test code = RDW) 19.9 % 12.4-16.5 H PLATELET COUNT (test code = PLT) 242 K/mm3 133-385 N MEAN PLATELET VOLUME (test code = MPV) 10.8 fl 9.1-12.7 N MANUAL DIFF REQUIRED (test code = MDIFF) YES RBC MORPHOLOGY REQUIRED (test code = RBCM) ABNORMAL NORMAL HYPOCHROMIC 2 + PLATELET MORPHOLOGY REQUIRED (test code = PLTMR) NORMAL NORMAL WBC [id number] 22:28:00* Test Item Value Reference Range Interpretation Comme nts TOTAL CELLS COUNTED (test co de = TCC) 100 #CELLS SEGMENTED NEUTROPHILS (test code = SEG) 52 % 56.5-79.4 L LYMPHOCYTE (test code = LYMPH) 34 % 20-40 N ATYPICAL LYMPH (test code = ALYMPH) 6 % MONOCYTE (test code = MON) 8 % 0-8 N HYPOCHROMIA (test code = HYPO) 2+ PLATELET ESTIMATE (test code = PLTEST) ADEQUATE ADEQ PLATELET MORPHOLOGY (test co de = PLTMORPH) NORMAL NORMAL CHEMISTRY 7 [id number] 22:19:00* Test Item Value Reference Range Interpretation Comme nts SODIUM (test code = NA) 140 mEq/L 135-145 N POTASSIUM (test code = K) 3.8 mEq/L 3.5-5.0 N CHLORIDE (test code = CL) 105 mEq/L 100-115 N CARBON DIOXIDE (test code = CO2) 23 mEq/L 22-31 N ANION GAP (test code = GAP) 16.20 10-20 N GLUCOSE (test code = GLU) 158 mg/dL 65-110 H BLOOD UREA NITROGEN (test co de = BUN) 16 mg/dL 7-18 N GLOMERULAR FILTRATION RATE ( test code = GFR) 67 ml/min >60 N CREATININE (test code = CREAT) 0.9 mg/dL 0.5-1.0 N CALCIUM (test code = CA) 8.8 mg/dL 8.4-10.2 N LIVER [id number] 22:19:00* Test Item Value Reference Range Interpretation Comme [facility] TOTAL PROTEIN (test code = PROT) 7.4 gm/dL 6.3-8.2 N ALBUMIN (test code = ALB) 3.6 gm/dL 3.4-4.8 N BILIRUBIN TOTAL (test code = BILT) 0.1 mg/dL 0.2-1.0 L BILIRUBIN DIRECT (test code = BILD) <0.1 mg/dL <0.2 N SGOT/AST (test code = AST) 14 units/L 15-37 L SGPT/ALT (test code = ALT) 29 units/L 12-78 N ALKALINE PHOSPHATASE TOTAL ( test code = ALKP) 74 units/L 46-116 N [id number] 22:19:00* Test Item Value Reference Range Interpretation Comme [facility] LIPASE (test code = LIP) 253 units/L 73-393 N PROTHROMBIN [id number] 22:18:00* Test Item Value Reference Range Interpretation Comme [facility] PROTHROMBIN TIME PATIENT (te st code = PTP) 11.0 secs 10.4-12.4 N IS PATIENT ON ANTICOAGULANTS ? NINTERNATIONAL NORMAL [id number] 22:18:00* Test Item Value Reference Range Interpretation Comme [facility] INTERNATIONAL NORMAL RATIO (test code = INR) 0.99 The INR is to be used only for monitoring oral anticoagulanttherapy. INDICATION INR VALUE 1. Prophylaxis including high risk surgery 2.0 - 2.52. Deep venous thrombosis. Pulmonary embolism. Atrial fibrillation or bioprosthetic heart valves 2.0 - 3.03. Mechanical heart valves or recurrent systemic embolism. 3.0 - 3.5 IS PATIENT ON ANTICOAGULANTS ? NCBC W/AUTO [id number] 22:06:00* Test Item Value Reference Range Interpretation Comme nts WHITE BLOOD CELL (test code = WBC) 7.9 K/mm3 6.6-12.1 N RED BLOOD CELL (test code = RBC) 3.15 M/mm3 3.45-5.01 L HEMOGLOBIN (test code = HGB) 7.9 g/dL 10.7-13.9 L HEMATOCRIT (test code = HCT) 27.7 % 32.1-42.1 L MEAN CELL VOLUME (test code = MCV) 88 fL 84.1-94.8 N MEAN CELL HGB (test code = MCH) 25.1 pg 27-35 L MEAN CELL HGB CONCETRATION ( test code = MCHC) 28.5 gm/dL 32.2-34.1 L RED CELL DISTRIBUTION WIDTH (test code = RDW) 19.9 % 12.4-16.5 H PLATELET COUNT (test code = PLT) 242 K/mm3 133-385 N MEAN PLATELET VOLUME (test c ode = MPV) 10.8 fl 9.1-12.7 N MANUAL DIFF REQUIRED (test c ode = MDIFF) YES RBC MORPHOLOGY REQUIRED (debora t code = RBCM) NORMAL PLATELET MORPHOLOGY REQUIRED (test code = PLTMR) NORMAL WBC [id number] 22:06:00* Test Item Value Reference Range Interpretation Comme nts SEGMENTED NEUTROPHILS (test code = SEG) % 56.5-79 .4 LYMPHOCYTE (test code = LYMPH) % 20-40 CBC W/AUTO [id number] 22:06:00* Test Item Value Reference Range Interpretation Comme nts WHITE BLOOD CELL (test code = WBC) 7.9 K/mm3 6.6-12.1 N RED BLOOD CELL (test code = RBC) 3.15 M/mm3 3.45-5.01 L HEMOGLOBIN (test code = HGB) 7.9 g/dL 10.7-13.9 L HEMATOCRIT (test code = HCT) 27.7 % 32.1-42.1 L MEAN CELL VOLUME (test code = MCV) 88 fL 84.1-94.8 N MEAN CELL HGB (test code = MCH) 25.1 pg 27-35 L MEAN CELL HGB CONCETRATION ( test code = MCHC) 28.5 gm/dL 32.2-34.1 L RED CELL DISTRIBUTION WIDTH (test code = RDW) 19.9 % 12.4-16.5 H PLATELET COUNT (test code = PLT) 242 K/mm3 133-385 N MEAN PLATELET VOLUME (test c ode = MPV) 10.8 fl 9.1-12.7 N MANUAL DIFF REQUIRED (test c ode = MDIFF) YES RBC MORPHOLOGY REQUIRED (debora t code = RBCM) NORMAL PLATELET MORPHOLOGY REQUIRED (test code = PLTMR) NORMAL WBC [id number] 22:06:00* Test Item Value Reference Range Interpretation Comme nts SEGMENTED NEUTROPHILS (test code = SEG) % 56.5-79 .4 LYMPHOCYTE (test code = LYMPH) % 20-40 UA RFLX MICR CULT IF [id number] 21:38:00* Test Item Value Reference Range Interpretation Comme nts UA COLOR (test code = COLU) RED YELLOW A UA APPEARANCE (test code = APPU) CLOUDY CLEAR A UA GLUCOSE DIPSTICK (test code = DGLUU) NEGATIVE NEG UA BILIRUBIN DIPSTICK (test code = BILU) NEGATIVE NEG UA KETONE DIPSTICK (test code = KETU) NEGATIVE NEG UA SPECIFIC GRAVITY (test code = SGU) 1.026 1.001-1.035 N UA BLOOD DIPSTICK (test code = ELVIN) 3+ NEG A UA PH DIPSTICK (test code = ESTEBAN) 5.0 5-9 UA PROTEIN DIPSTICK (test code = PROU) 2+ NEG A UA UROBILINIOGEN DIPSTICK (test code = URO) NEGATIVE mg/dL NEG UA NITRITE DIPSTICK (test code = SANJEEV) NEG NEG UA LEUKOCYTE ESTERASE DIPSTICK (test code = LEUU) NEG NEG UA WBC (test code = WBCU) NONE SEEN #/hpf NONE SEEN UA RBC (test code = RBCU) TOO NUMEROUS T O CNT #/hpf NONE SEEN A UA EPITHELIAL CELLS (test code = EPIU) RARE #/HPF RARE-FEW UA BACTERIA (test code = BACU) NEGATIVE /HPF RARE-FEW UA MUCUS (test code = MUCU) RARE NONE SEEN Indication for culture: Suprapubic PainAB HIV 1 19:44:00* Test Item Value Reference Range Interpretation Comme nts AB HIV 1 2 (test code = EUD55JX) NONREACTIVE NONREACTIVE Done by [employer] 4[employer] Gen HIV Ag/Ab Combo Screen IS CONSENT FORM SIGNED FOR HIV TESTING? YCBC W/AUTO [id number] 17:30:00* Test Item Value Reference Range Interpretation Comme nts WHITE BLOOD CELL (test code = WBC) 8.3 K/mm3 6.6-12.1 N RED BLOOD CELL (test code = RBC) 3.39 M/mm3 3.45-5.01 L HEMOGLOBIN (test code = HGB) 8.6 g/dL 10.7-13.9 L HEMATOCRIT (test code = HCT) 29.6 % 32.1-42.1 L MEAN CELL VOLUME (test code = MCV) 87 fL 84.1-94.8 N MEAN CELL HGB (test code = MCH) 25.4 pg 27-35 L MEAN CELL HGB CONCETRATION (test code = MCHC) 29.1 gm/dL 32.2-34.1 L RED CELL DISTRIBUTION WIDTH (test code = RDW) 20.1 % 12.4-16.5 H PLATELET COUNT (test code = PLT) 254 K/mm3 133-385 N MEAN PLATELET VOLUME (test code = MPV) 11.5 fl 9.1-12.7 N NEUTROPHIL % (test code = NT%) 66.1 % 56.5-79.4 N LYMPHOCYTE % (test code = LY%) 22.7 % 14.3-34.3 N MONOCYTE % (test code = MO%) 9.4 % 5.1-10.4 N EOSINOPHIL % (test code = EO%) 1.0 % 0.1-3.0 N BASOPHIL % (test code = BA%) 0.6 % 0.1-1.0 N NEUTROPHIL # (test code = NT#) 5.5 K/mm3 LYMPHOCYTE # (test code = LY#) 1.9 K/mm3 MONOCYTE # (test code = MO#) 0.8 K/mm3 EOSINOPHIL # (test code = EO#) 0.08 K/mm3 BASOPHIL # (test code = BA#) 0.1 K/mm3 RBC MORPHOLOGY REQUIRED (test code = RBCM) ABNORMAL NORMAL +1 ANISOCYTOSIS+ 1 HYPOCHROMIA PLATELET MORPHOLOGY REQUIRED (test code = PLTMR) NORMAL NORMAL CBC W/AUTO [id number] 17:04:00* Test Item Value Reference Range Interpretation Comme nts WHITE BLOOD CELL (test code = WBC) 8.3 K/mm3 6.6-12.1 N RED BLOOD CELL (test code = RBC) 3.39 M/mm3 3.45-5.01 L HEMOGLOBIN (test code = HGB) 8.6 g/dL 10.7-13.9 L HEMATOCRIT (test code = HCT) 29.6 % 32.1-42.1 L MEAN CELL VOLUME (test code = MCV) 87 fL 84.1-94.8 N MEAN CELL HGB (test code = MCH) 25.4 pg 27-35 L MEAN CELL HGB CONCETRATION ( test code = MCHC) 29.1 gm/dL 32.2-34.1 L RED CELL DISTRIBUTION WIDTH (test code = RDW) 20.1 % 12.4-16.5 H PLATELET COUNT (test code = PLT) 254 K/mm3 133-385 N MEAN PLATELET VOLUME (test c ode = MPV) 11.5 fl 9.1-12.7 N NEUTROPHIL % (test code = NT%) 66.1 % 56.5-79.4 N LYMPHOCYTE % (test code = LY%) 22.7 % 14.3-34.3 N MONOCYTE % (test code = MO%) 9.4 % 5.1-10.4 N EOSINOPHIL % (test code = EO%) 1.0 % 0.1-3.0 N BASOPHIL % (test code = BA%) 0.6 % 0.1-1.0 N NEUTROPHIL # (test code = NT#) 5.5 K/mm3 LYMPHOCYTE # (test code = LY#) 1.9 K/mm3 MONOCYTE # (test code = MO#) 0.8 K/mm3 EOSINOPHIL # (test code = EO#) 0.08 K/mm3 BASOPHIL # (test code = BA#) 0.1 K/mm3 RBC MORPHOLOGY REQUIRED (debora t code = RBCM) NORMAL PLATELET MORPHOLOGY REQUIRED (test code = PLTMR) NORMAL UR HCG [id number] 17:01:00* Test Item Value Reference Range Interpretation Comme nts UR HCG QUAL (test code = HCGQLU) NEGATIVE 1. Very dilute u rine specimens, as indicated by a lowspecific gravity, may not contain licensing representative levels ofhCG. 2. False negative results may occur when the levels of hCGare below the sensitivity level of the test. If is still suspected, a first morningurine specimen should be collected 48 hours later andtested. - US PELVIS [id number] 13:09:00Patient Name: KAMRAN SANTANA Unit No: [id number] EXAMS: CPT CODE: [id number] US PELVIS COMPLETE 41545 Exam: Pelvic ultrasound. Exam date: June 06, 2019 COMPARISON: None. CLINICAL HISTORY: Heavy prolonged bleeding. Real-time transabdominal and transvaginal imaging with color and Spectral doppler of the pelvis demonstrates a 10.9 x 5.1 x 5.8 cm uterus. The following fibroids are seen: Posterior intramural 1.0 x 1.0 x 1.0 cm. The endometrium measures 1.3 cm. The endometrium is mildly heterogeneous. No feeding vessel is identified to the area of increased echoes . The right ovary measures 3.2 x 1.9 x 2.1 cm with a 2.5 x 1.5 x 1.7 cm unilocular cyst. Blood flow is identified within the ovaries.. The left ovary measures 4.3 x 3.1 x 4.2 cm with a 3.3 x 3.1 x 3.7 cm unilocular cyst. Blood flowis identified within the ovary.. No significant free fluid or adnexal masses are identified. IMPRESSION: 1. Uterine leiomyoma , as detailed above. 2. Cyst in the left ovary may represent a functionalcyst. 3. Mildly inhomogeneous endometrium. No feeding vessel to the endometrial echoes to suggest apolyp is noted. The findings may represent hyperplasia. An unusual polyp cannot be excluded. Other etiologies cannot be excluded. at 1309 Reported and signed by: Anabela Sequeira MD CC: Davey Hawley III, MD Technologist: Geraldine Rosario RDMS, T Probe: Trnscrbd D/ (1309) t.HARPALR.CER Orig Print D/T: S: 06/06/2019 (7093) [facility] NAME: KAMRAN SANTANA Radiology Department PHYS: Davey Johnson III, MD [address] : 1970 AGE: 48 SEX: F [place], [place] [address] LOC: DivyaRAD PHONE #: [phone] EXAM DATE: 06/06/2019 STATUS: REG CLI FAX #: [phone] RAD NO: Page 1 Signed Report Patient Name: KAMRAN SANTANA Unit No: [id number] EXAMS: CPT CODE: [id number] US PELVIS COMPLETE 59944 (Continued) [facility] NAME: KAMRAN SANTANA Radiology Department PHYS: Davey Johnson III, MD [address] : 1970 AGE: 48 SEX: F [place] [address] LOC: DivyaRAD PHONE #: [phone] EXAM DATE: 06/06/2019 STATUS: REG CLI FAX #: [phone] RAD NO: Page 2 Signed Report- DUP AB/PEL/SC/[id number] 13:09:00Patient Name: KAMRAN SANTANA Unit No: [id number] EXAMS: CPT CODE: [id number] DUP AB/PEL/SC/LTD 16000Yyja: Pelvic ultrasound. Exam date: June 06, 2019 COMPARISON: None. CLINICAL HISTORY: Heavy prolonged bleeding. Real-time transabdominal and transvaginal imaging with color and Spectral doppler of the pelvis demonstrates a 10.9 x 5.1 x 5.8 cm uterus. The following fibroids are seen: Posterior intramural 1.0 x 1.0 x 1.0 cm. The endometrium measures 1.3 cm. The endometrium is mildly heterogeneous. No feeding vessel is identified to the area of increased echoes . The right ovary measures 3.2 x1.9 x 2.1 cm with a 2.5 x 1.5 x 1.7 cm unilocular cyst. Blood flow is identified within the ovaries.. The left ovary measures 4.3 x 3.1 x 4.2 cm with a 3.3 x 3.1 x 3.7 cm unilocular cyst. Blood flow is identified within the ovary.. No significant free fluid or adnexal masses are identified. IMPRESSION: 1. Uterine leiomyoma , as detailed above. 2. Cyst in the left ovary may represent a functional cyst. 3. Mildly inhomogeneous endometrium. No feeding vessel to the endometrial echoes to suggest a polyp is noted. The findings may represent hyperplasia. An unusual polyp cannot be excluded. Other etiologies cannot be excluded. at 1309 Reported and signed by: Anabela Sequeira MD CC: Davey Hawley III, MD Technologist: Geraldine Rosario RDMS, RVT Probe: Trnscrbd D/ (1309) t.SDR.CER Orig Print D/T: S: 06/06/2019 (1313) [facility] NAME: KAMRAN SANTANA Radiology Department PHYS: Davey Johnson III, MD [address] : 1970 AGE: 48 SEX: F [place] [address] LOC: Angel.RAD PHONE #: [phone] EXAM DATE: 06/06/2019 STATUS: REG CLI FAX #: [phone] RAD NO: Page 1 Signed Report Patient Name: KAMRAN SANTANA Unit No: [id number] EXAMS: CPT CODE: [id number] DUP AB/PEL/SC/LTD 91622 (Continued) [facility] NAME: KAMRAN SANTANA Radiology Department PHYS: Davey Johnson III, MD [address] : 1970 AGE: 48 SEX: F [place] [address] LOC: Angel.RAD PHONE #: [phone] EXAM DATE: 06/06/2019 STATUS: REG CLI FAX #: [phone] RAD NO: Page 2 Signed Report- US TRANSVAGINAL [id number] 13:09:00Patient Name: KAMRAN SANTANA Unit No: [id number] EXAMS: CPT CODE: [id number] US TRANSVAGINAL W/[id number] Exam: Pelvic ultrasound. Exam date: June 06, 2019 COMPARISON: None. CLINICAL HISTORY: Heavy prolonged bleeding. Real-time transabdominal and transvaginal imaging with color and Spectral doppler of the pelvis demonstrates a 10.9 x 5.1 x 5.8 cm uterus. The following fibroids are seen: Posterior intramural 1.0 x 1.0 x 1.0 cm. The endometrium measures 1.3 cm. The endometrium is mildly heterogeneous. No feeding vessel is identified to the area of increased echoes . The right ovary measures3.2 x 1.9 x 2.1 cm with a 2.5 x 1.5 x 1.7 cm unilocular cyst. Blood flow is identified within the ovaries.. The left ovary measures 4.3 x 3.1 x 4.2 cm with a 3.3 x 3.1 x 3.7 cm unilocular cyst. Bloodflow is identified within the ovary.. No significant free fluid or adnexal masses are identified. IMPRESSION: 1. Uterine leiomyoma , as detailed above. 2. Cyst in the left ovary may represent a functional cyst. 3. Mildly inhomogeneous endometrium. No feeding vessel to the endometrial echoes to suggest a polyp is noted. The findings may represent hyperplasia. An unusual polyp cannot be excluded. Other etiologies cannot be excluded. at 1309 Reported and signed by: Anabela Sequeira MD CC: Davey Hawley III, MD Technologist: Geraldine Rosario RDMS, T Probe: [id number] Trnscrbd D/ (1309) tFAUSTINA Orig Print D/T: S: 06/06/2019 (1313) [facility] NAME: KAMRAN SANTANA Radiology Department PHYS: Davey Jones III, MD [address] : 1970 AGE: 48 SEX: F [place], [place] [address] LOC: Angel.RAD PHONE #: [phone] EXAM DATE: 06/06/2019 STATUS: REG CLI FAX #: [phone] RADNO: Page 1 Signed Report Patient Name: KAMRAN SANTANA Unit No: [id number] EXAMS: CPT CODE: [id number] US TRANSVAGINAL W/PELVIS 67072 (Continued) [facility] NAME: NICHOLE,KAMRAN Radiology Department PHYS: Davey Johnson III, MD [address] : 1970 AGE: 48 SEX: F [place], [place] [address] LOC: ZACHARY PHONE #: [phone] EXAM DATE: 06/06/2019 STATUS:REG CLI FAX #: [phone] RAD NO: Page 2 Signed Report Notes Date/Time Note Provider Source 2019-07-27 14:29:00 [id number] 2WMrefUn+FDZlNKDS/YzRrVWjm1x8 pPIOOhu7yAHMwkkXjhi1Go+szXNAooDmK80085-94-73C59:2 9:00 [facility] Post Prog NoteREPORT#:[id number] REPORT STATUS: SignedDATE:07/27/19 TIME: 1429 PATIENT: KAMRAN SANTANA UNIT #: [id number]#: [id number] ROOM/BED: [facility]-ADOB: [birth year] AGE: 48 SEX: F ATTEND: Davey Hawley III MDADM AUTHOR: Davey Hawley III, MD * ALL edits or amendments must be made on the electronic/computer document * GeneralORM Surgeries: Surgery Date and Time: 07/27/2019729 Primary Procedure: THREE PUNCTURE TOTAL LAPAROSCOPIC Secondary Procedure: CYSTOSCOPY WITH PROCEDURE Post-op: post surgery rounds SubjectivePatient reports:Yes: ambulating, pain controlled. No: complaints, abdominal pain, chills, fever, flatus/bowel movement, headache, heartburn, nausea, pelvic pain, tolerating diet, vaginal bleeding, voiding/urinating, vomiting. Objective Physical ExamVS/I OLast Documented: Result Date Time Pulse Ox 95 07/27 1004 B/P 99/64 07/27 1004 B/P Mean 76.0 07/27 1004 Temp 98.6 07/27 1004 Pulse 64 07/27 1004 Resp 14 07/27 1004 O2 Delivery Room air 07/27 1000 O2 Flow Rate 10.871035 07/27 0857 24 hour I O ending at 0700: 07/26 1900 07/27 0700 Intake Total Output Total Balance Patient 163 lb 161 lb Weight Weight Standing scale Measurement Method Patient Weight Weight (lb): 160Weight (oz): 11.47Weight (kg): 72.900 General appearance: alert, awake, orientedWound/incision: Location:abd clean dryExtremities: no calf tenderness, no edema Diagnosis, Assessment PlanFree Text A P:S/P TLH BS D/C today unless able to void, then replace catheter at 1431 [facility] #:[id number] OF REPORT PRProgress Lkoe3582-55-08Z67:29:00F.STTA28364276-9445OITljiq able for patient rqobBFLBLEJNRJBJVK0550-50-16P08:32:15 [facility] 2019-07-27 08:53:00 [id number] dEkmRD8ZcmyAiOAo0KjHYvduez+le SwohlMKIONHIAeeRFIpU5lTXM1UCqumN+10346-05-97O72:5 3:441506-7153 [facility] [address] PATIENT NAME: KAMRAN SANTANA ADMIT DATE: 07/27/19ACCOUNT NO: [id number] ROOM NO: F.2634 AGE: 48 SEX: F ADMITTING PHYSICIAN: Davey Hawley III, MD ATTENDING PHYSICIAN: Davey Hawley III, MD OPERATION DATE: 07/27/2019 PREOPERATIVE DIAGNOSES: Menometrorrhagia, pelvic pain, severe anemia. POSTOPERATIVE DIAGNOSES: Menometrorrhagia, pelvic pain, severe anemia. Pathpending. SURGEON: Davey Hawley III, MD [employer]OR AND GENERATOR REPAIRER: Rosa Meza MD PROCEDURES: Total abdominal hysterectomy with bilateral salpingo-oophorectomy,lysis of abdominal pelvic adhesions, and cystoscopy. ANESTHESIA: General. PROCEDURE IN DETAIL: The patient was brought to the operating room, prepped anddraped in sterile manner for vaginal abdominal procedure. At the time ofvaginal examination, weighted speculum was placed in the posterior to anterior. Cervix was grasped with a single-tooth tenaculum, sounded to 8 cm. A 3-1/2 KOHcup was placed without difficulty and bladder was drained with a Pressley catheter. A paracervical block with 10 mL of 0.25% Marcaine was placed. The attentionwas turned to the abdominal area where 0.25% Marcaine was injected at eachincision site, first intraumbilically. A vertical incision was made in theumbilicus 5-mm. Laparoscope and trocar were placed under direct vision and withthe aid of laparoscope, the right and left lateral 5-mm trocars were then place. There were some filmy adhesions. They were taken down between the colon and theabdominal wall and the tube in the abdominal wall, probably from prior tuballigation surgery. The procedure was accomplished by first taking the round ligaments bilaterally,creating a bladder flap. Tubes were from the ovaries using Harmonicenergy. The utero-ovarian ligament was taken with Harmonic energy. Dissectionwas carried down to the level of the cardinals. Uterines were taken bilaterallywith bipolar energy and then Harmonic scalpel was used to transect the cardinalligaments. Using the LESTER cup as a guide, circumferential incision was madearound the cervix. Uterus was delivered vaginally along with the tubes. A 2-0V-Loc PDS was then placed vaginally. This was used to do a run suture ofvaginal cuff and trimmed. At this point, the hemostasis had been excellent. Blood loss was less than 10 mL. Both ovaries were normal. Small amount ofirrigation was used to remove small amount of fluid. The V-Loc was removed andneedle was removed. Pneumoperitoneum was reduced. The incision was closed with PATIENT NAME: KAMRAN SANTANA 4-[address] Meza then performed a cystoscopy, which revealed bilateralureteral jets. Estimated blood loss 10 mL. Sponge and instrument counts werecorrect at the end of the case. The patient tolerated the procedure well andwent to recovery rom in good condition. Dictated By: Davey Hawley III, MD WT: OP:FGODFREY/ANTONIO/MARSDD: 07/27/2019 08:53:55DT: 07/27/2019 09:20:23Conf#: [id number]/DID#: [id number] Authenticated by Davey Hawley MD On 08/01/2019 02:43:45 PM at 1444 PATIENT NAME: KAMRAN SANTANA svkmyi4541-39-69K51:20:00F.[id number] lable for patient jrzaZRTYZVJTRVLGMR0087-21-18N72:44:28 [facility] 2019-07-27 08:53:00 [id number] 6GqQeM9gYP1S2jTFcyR3J2Xzvmwhh EUbtiozgFwE6vnU0GjsY4Nj7KfK0sE/z2I9513-32-00J61:5 3:[id number] [place] [address] PATIENT NAME: KAMRAN SANTANA ADMIT DATE: 07/27/19ACCOUNT NO: [id number] ROOM NO: .2634 AGE: 48 SEX: F ADMITTING PHYSICIAN: Davey Hawley III, MD ATTENDING PHYSICIAN: Davey Hawley III, MD OPERATION DATE: 07/27/2019 PREOPERATIVE DIAGNOSES:1. Symptomatic fibroids.2. Menorrhagia.3. Anemia. POSTOPERATIVE DIAGNOSES:1. Symptomatic fibroids.2. Menorrhagia.3. Anemia. PROCEDURE: Cystourethroscopy. SURGEON: Rosa Meza MD PROPULSION MOTOR AND GENERATOR REPAIRER: ANESTHESIA: General endotracheal. ESTIMATED BLOOD LOSS: Zero for this portion of the procedure. INDICATION: Ms. Santana is a 48-year-old female who was undergoing a totallaparoscopic hysterectomy and bilateral salpingectomy. At the conclusion of theprocedure, it was asked that cystourethroscopy be performed to evaluate theintegrity of the lower urinary tract. FINDINGS: Cystourethroscopy revealed ureteral orifices in the normal anatomicallocation with bilateral ureteral efflux. There was no evidence of bladderlesions or injury. Urethra was noted to be intact. PROCEDURE IN DETAIL: The patient was taken to the operating room where she wasprepped and draped in the usual sterile fashion in the dorsal lithotomyposition. A Pressley catheter was placed through the urethral meatus. Initially,a total laparoscopic hysterectomy and bilateral salpingectomy was performed byDr. Joselyn Hawley. At the conclusion of this procedure, I proceeded withcystourethroscopy. Pressley catheter was removed. Cystourethroscopy was then performed with m87-uwcyss cystoscope revealing the above noted findings. A complete bladdersurvey with full bladder distention was performed. A Pressley catheter wasreplaced. PATIENT NAME: KAMRAN SANTANA The patient tolerated the procedure well. Sponge, lap, and needle counts werecorrect x2. She was taken to the recovery room in stable condition. Dictated By: Rosa Meza MD WT: OP:FGODFREY/AKI/NTSDD: 07/27/2019 08:53:14DT: 07/27/2019 09:21:07Conf#: [id number]/DID#: [id number] Authenticated by Rosa Meza MD On 08/02/2019 04:39:15 PM at 1639 PATIENT NAME: KAMRAN SANTANA ondmdo7673-25-31D88:21:00F.[id number] lable for patient fljqOFEHEJMJONRPNB4618-20-10S76:39:47 [facility] 2019-07-26 14:05:00 [id number] uFd3ie9qpSkKZRaCofG/ee6I8avMo cuZqCMEM0gV4Th8QTiLbh8oLtl8bKpboGG8978-17-05R45:0 5:[id number] [facility] [address] PATIENT NAME: KAMRAN SANTANA ADMIT DATE: 07/27/19ACCOUNT NO: [id number] ROOM NO: F.2634 AGE: 48 SEX: F ADMITTING PHYSICIAN: Davey Hawley III, MD ATTENDING PHYSICIAN: Davey Hawley III, MD ADMISSION DATE: 07/27/2019 ADMITTING DIAGNOSES: Menorrhagia, severe anemia. HISTORY OF PRESENT ILLNESS: The patient is a 48-year-old 3, para 3,having issues with at least two periods a month for several years. She is blooddown as low as 6 grams of hemoglobin. She has turned it up as high as 11 andcurrently running 8. [facility] showed thickenedendometrium with negative endometrial biopsy. She has also had Lysteda on twoor three occasions in attempt to control the bleeding, [facility] She has also had some mild cardiac issues and she received cardiacclearance for that. ALLERGIES: NONE KNOWN. PAST SURGICAL HISTORY: None. REVIEW OF SYSTEMS: Other than cardiovascular disease negative. SOCIAL HISTORY: She does smoke half pack a day and two beers several times aweek. FAMILY HISTORY: Positive for diabetes and heart disease. Negative for breastcancer, colon cancer, ovarian cancer, and osteoporosis. PHYSICAL EXAMINATION:VITAL SIGNS: Blood pressure is 120/87, weight 160 pounds.GENERAL: Well-developed, well-nourished, female, in no apparentdistress.HEENT: Normocephalic. PERRLA. EOMs intact. Sclerae nonicteric. Oropharynxclear.HEART: Regular rate and rhythm. No murmur or gallop.LUNGS: Clear.EXTREMITIES: No clubbing, cyanosis, or edema.BREASTS: Without tenderness, mass, or discharge.ABDOMEN: Bowel sounds are positive. No masses palpated. Normal bowel sounds.PELVIS: External BUS, normal female. Vagina is pink and rugated withoutlesions. Small amount of blood. The adnexa is clear.RECTOVAGINAL: Deferred.NEUROLOGIC: Grossly intact.MUSCULOSKELETAL: Grossly intact. IMPRESSION: Severe menometrorrhagia, anemia, minimal cardiovascular disease. PATIENT NAME: KAMRAN SANTANA PLAN: [facility]. Informed consent, risks and benefits of the procedure wereexplained to the patient including the risk of blood loss requiring transfusion;injury to bowel, bladder, and ureters. The patient understands these risks andwished to proceed with above operation. I have answered all her questions. Dictated By: Davey Hawley III, MD WT: HP:ASHOK/ANTONIO/MARSDD: 07/26/2019 14:05:57DT: 07/26/2019 14:16:55Conf#: [id number]/DID#: [id number] by Davey Hawley MD On 08/01/2019 02:43:43 PM at 1444 PATIENT NAME: KAMRAN SANTANA and physical hqqkfnvwqpn3325-09-74P95:16:00F.[id number] VAvailable for patient abyrNETAPSYXSYPOCH9101-05-11O11:44:28 [facility] 2019-07-21 23:15:00 [id number] 0tRie/a6oKZJGGVbPn63asIKwOWJK Zyw5spOS/ml+8rQzytwnhZcmB357LbvetC4381-91-17T51:1 5:00 [facility] ([facility])EMERGENCY PROVIDER REPORTREPORT#:[id number] REPORT STATUS: SignedDATE:07/21/19 TIME: 2314 PATIENT: KAMRAN SANTANA UNIT #: [id number]#: [id number] ROOM/BED:AGE: 48 SEX: F PCP PHYS: No Primary or Family PhysicianSERVICE AUTHOR: Gómez Miramontes MD * ALL edits or amendments must be made on the electronic/computer document * HPI- Female GeneralInitial Greet Date/Time 07/21/192100 PresentationChief Complaint Vaginal bleedingHx Obtained From Patient)( Sudden in Onset? No Free Text HPI NotesFree Text HPI Notes48 yo female w/ h/o MVP and cardiac dz who is presenting with vaginal bleeding. Pt reports this is a chronic issue for which she is scheduled for hysterectomy next week. Pt reports heavy bleeding, onset last night, passing bright red blood and clots,associated with feeling lightheaded. She reports similar heavy bleeding in past. Had recent preop bloodwork.No vomiting or abd pain. Ase Certified Technician - Dr Grant Risk- Female Risk StratificationEctopic No risk factors Review of Systems ROS StatementsComplete sys rev neg except as marked. Basic Review of SystemsBasic ROS EYES: No redness, RESP: No SOB, CV: No chest pain, HEM: No bleeding/bruising, PSYCH: NL thought content Focused Review of SystemsGU FemaleReports: Vaginal bleeding - abnl. Denies: Pelvic pain. Past Medical History - AdultStated Complaint VAGINAL BLEEDINGAllergiesCoded Allergies:No Known Allergies (07/19/19) Home MedicationsReported MedicationsTRANEXAMIC ACID (LYSTEDA) 650 MG PO TID Smoking status for patients 13 years old or older: Current every day smoker Physical Exam Vital SignsVital SignsFirst Documented: Result Date Time Pulse Ox 98 07/21 2104 B/P 166/79 07/21 2104 B/P Mean 108 07/21 2104 O2 Delivery Room air 07/21 2104 Temp 36.8 07/21 2104 Pulse 81 07/21 2104 Resp 18 07/21 2104 Last Documented: Result Date Time Pulse Ox 100 07/21 2354 B/P 166/73 07/21 2354 B/P Mean 104 07/21 2354 O2 Delivery Room air 07/21 2354 Temp 36.8 07/21 2354 Pulse 76 07/21 2354 Resp 07/21 Review of Vital Signs Reviewed Basic Physical ExamBasic PE GEN: Well appearing/NAD, HEAD: Atraumatic/NC, EYES: PERRL, conj clear, ENT: Membranes moist (airway patent), NECK: Supple (no stridor), RESP: No resp distress (CTAB), CV: Reg rate rhythm, ABD: Soft/non-tender, EXT: No gross abnormality (No edema), SKIN: No rashes, warm/dry, NEURO: alert oriented, NEURO: gross movement NL, PSYCH: NL thought content (normal affect) Focused PEGenitourinary Vaginal Bleeding/Discharge Bleeding moderate. Interpretation Diagnostics Lab Results InterpretationResultsLaboratory Tests 07/21/192154:[Embedded Image Not Available]Laboratory Tests: 07/21 Chemistry Sodium (135 - 145 mEq/L) 140 Potassium (3.5 - 5.0 mEq/L) 3.8 Chloride (100 - 115 mEq/L) 105 Carbon Dioxide (22 - 31 mEq/L) 23 Anion Gap (10 - 20) 16.20 BUN (7 - 18 mg/dL) 16 Creatinine (0.5 - 1.0 mg/dL) 0.9 Glomerular Filtr Rate (>60 ml/min) 67 Glucose (65 - 110 mg/dL) 158 H Calcium (8.4 - 10.2 mg/dL) 8.8 Total Bilirubin (0.2 - 1.0 mg/dL) 0.1 L Direct Bilirubin (<0.2 mg/dL) <0.1 AST (15 - 37 units/L) 14 L ALT (12 - 78 units/L) 29 Total Alk Phosphatase (46 - 116 units/L) 74 Total Protein (6.3 - 8.2 gm/dL) 7.4 Albumin (3.4 - 4.8 gm/dL) 3.6 Lipase (73 - 393 units/L) 253 Coagulation PT (10.4 - 12.4 secs) 11.0 INR 0.99 Hematology WBC (6.6 - 12.1 K/mm3) 7.9 RBC (3.45 - 5.01 M/mm3) 3.15 L Hgb (10.7 - 13.9 g/dL) 7.9 L Hct (32.1 - 42.1 %) 27.7 L MCV (84.1 - 94.8 fL) 88 MCH (27 - 35 pg) 25.1 L MCHC (32.2 - 34.1 gm/dL) 28.5 L RDW (12.4 - 16.5 %) 19.9 H Plt Count (133 - 385 K/mm3) 242 MPV (9.1 - 12.7 fl) 10.8 Add Manual Diff YES Total Counted (#CELLS) 100 Seg Neutrophils % (56.5 - 79.4 %) 52 L Lymphocytes % (Manual) (20 - 40 %) 34 Atypical Lymphs % (%) 6 Monocytes % (Manual) (0 - 8 %) 8 Platelet Estimate (ADEQ) ADEQUATE Plt Morphology Comment (NORMAL) NORMAL Hypochromasia 2+ Urines Urine Color (YELLOW) RED Urine Appearance (CLEAR) CLOUDY Urine pH (5 - 9) 5.0 Ur Specific [place] (1.001 - 1.035) 1.026 Urine Protein (NEG) 2+ H Urine Glucose (UA) (NEG) NEGATIVE Urine Ketones (NEG) NEGATIVE Urine Blood (NEG) 3+ H Urine Nitrite (NEG) NEG Urine Bilirubin (NEG) NEGATIVE Urine Urobilinogen (NEG mg/dL) NEGATIVE Ur Leukocyte Esterase (NEG) NEG Urine RBC (NONE SEEN #/hpf) TOO NUMEROUS TO CNT H Urine WBC (NONE SEEN #/hpf) NONE SEEN Ur Epithelial Cells (RARE - FEW #/HPF) RARE Urine Bacteria (RARE - FEW /HPF) NEGATIVE Urine Mucus (NONE SEEN) RARE ECG #1 InterpretationDate 07/21/19Time 2123Interpreted by ED physicianNL ECG Interpretation Normal rate, Normal sinus rhythm, No acute ischemic changes, Normal axis, Normal intervalsRate 77 Re-Evaluation MDM Free Text MDM NotesFree Text MDM NotesCase discussed wtih pt's Dr Hawley, ok to d/ch pt with outpt f/u given only modest drop in Hgb and chronicity of symptoms. Pt feels better after fluids, she would like to go home, bleeding has slowed. ED CourseMedication(s) OrderedMedication(s) Ordered:Central Nervous System Agents Sig/Ivan Start time Last Medication Dose Route Stop Time Status Admin Acetaminophen 1,000 MG X1ED STA 07/21 2152 DC 07/21 PO 07/21 Electrolytic, Caloric, And Reyan Sig/Ivan Start time Last Medication Dose Route Stop Time Status Admin Sodium Chloride 1,000 ML X1ED STA 07/21 2331 DC IV 07/21 2331 Sodium Chloride 1,000 ML X1ED STA 07/21 2117 DC 07/21 IV 07/21 Patient Discharge Departure Vital Signs/ConditionVital SignsFirst Documented: Result Date Time Pulse Ox 98 07/21 2104 B/P 166/79 07/21 2104 B/P Mean 108 07/21 2104 O2 Delivery Room air 07/21 2104 Temp 36.8 07/21 2104 Pulse 81 07/21 2104 Resp 18 07/21 2104 Last Documented: Result Date Time Pulse Ox 100 07/21 2354 B/P 166/73 07/21 2354 B/P Mean 104 07/21 2354 O2 Delivery Room air 07/21 2354 Temp 36.8 07/21 2354 Pulse 76 07/21 2354 Resp 18 07/21 2354 All vital signs available at the time of this entry have been reviewed. Clinical ImpressionClinical ImpressionPrimary Impression: Vaginal bleeding Disposition DecisionDischarge )( Discharged to Home Yes )( Time 235 )( Date 07/21/19 Discharge/Care PlanCounseled Regarding Diagnosis, Lab results, Need for follow-up, When to return to ED at 1430RPT #:[id number] OF REPORTEDEmergency department hrastx5408-64-41V26:15:00F.VJEO41675040-7118JQWgu ilable for patient oqedAFZUODVGUYLFWE1839-28-52S78:31:19 [facility] 2019-07-21 21:24:00 [id number] dZdx6J4ywNhsVUu4iBDN9zJO7AfYd ndhp+YOUlsUHbGdA1q378phllYadczw/j/1558-34-85X57:2 4:[id number] [place] [address] PATIENT NAME: KAMRAN SANTANA ADMIT DATE: 07/21/19ACCOUNT NO: [id number] ROOM NO: AGE: 48 SEX: F ADMITTING PHYSICIAN: ATTENDING PHYSICIAN: Gómez Miramontes MD Order:[id number] Reason : DIZZIY /ABD. PAIN / PRE- OP 07/27/19 Test Date/Time Stamp:WedJul 21 2019 21:24:40Blood Pressure : / mmHGVent. Rate : 077 BPM Atrial Rate : 077 BPM P-R Int : 160 ms QRS Dur : 096 ms QT Int : 394 ms P-R-T Axes : 059 021 024 degrees QTc Int : 445 ms Normal sinus rhythmNormal ECGNo previous ECGs availableConfirmed by NANCY MAY MD ([id number]) on 07/25/2019 12:57:22 PM Referred By: Self Referred Confirmed by:NANCY MAY MD at 1257 PATIENT NAME: KAMRAN SANTANA .[id number] AVAvailable for patient hcxzMSGWAYYAMBAGRK0188-69-52K58:57:42 [facility]
[2023-07-12] MEDS ORDERED: ACETAMINOPHEN 500 MG TAB ONE (00:33)
[2023-07-12 00:44] LABS: Absolute Lymphocytes (CBC) 2.8 K/uL (0.7-4.9); Hematocrit 43.5 % (36.0-45.0); Lymphocytes % 42.5 % (15.3-44.8); MPV 8.6 fL (7.6-11.3); Platelets 275 thou/uL (152-406); RBC Red Blood Cell Count 4.63 M/uL (3.86-4.86)
[2023-07-12 00:48] LABS: Protime INR 1.01
[2023-07-12 00:56] LABS: Magnesium 2.3 mg/dL (1.6-2.4); Potassium 3.7 mEq/L (3.5-5.1)
[2023-07-12] MEDS ORDERED: KETOROLAC 30 MG/ML INJ ONE (01:29)
[2023-07-12] MEDS ORDERED: DIPHENHYDRAMINE 50 MG/ML VIAL ONE (01:30)
[2023-07-12] MEDS ORDERED: METOCLOPRAMIDE 10 MG/2mL INJ ONE (01:30)
--- NOTE | 2023-07-12 01:30 | EDPHYS ---
Physician Documentation [facility] Name: Amara Santana Age: 52 yrs Sex: Female : 1970 Arrival Date: 07/11/2023 Time: 23:46 Bed 7 Private MD: ED Physician Kj Leary HPI: 07/12 00:04 This 52 yrs old Female presents to ER via Unassigned with complaints of right eye ms3 vision loss, dizziness. 00:04 52-year-old female presents to the emergency department for right eye vision loss, ms3 dizziness, headache that began 2 hours prior to arrival. Patient states her family noted a facial droop. Patient states she has had the symptoms to previous times and they last for about 30 minutes and then she develops a headache. Patient states she is having a 10/10 headache at this time. Patient states symptoms have resolved.. RING FACER: 07/11 23:50 LMP N/A - Hysterectomy, Not jw7 Historical: - Allergies: 07/12 01:09 No Known Allergies; jw7 - Home Meds: 01:09 None [Active]; jw7 - PMHx: 01:09 Heart Murmur; mitral valve prolapse; Pulmonary Stenosis; jw7 - PSHx: 01:09 partial hysterectomy; Heart Cath X2 (partial hysterectomy); jw7 - Immunization history:: Adult Immunizations up to date, Client reports having NOT received the Covid vaccine. Last tetanus immunization: > 10 years ago Flu vaccine is not up to date. - Social history:: Smoking status: Patient reports the use of cigarette tobacco products, smokes one-half pack cigarettes per day, Patient uses alcohol, occasionally. Patient/guardian denies using street drugs, IV drugs. ROS: 00:04 Constitutional: Negative for fever, and chills. Neck: Negative for injury, pain, and ms3 swelling, Cardiovascular: Negative for chest pain, and palpitations. Respiratory: Negative for shortness of breath, cough, wheezing, and pleuritic chest pain, Abdomen/GI: Negative for abdominal pain, nausea, vomiting, diarrhea, and constipation, Skin: Negative for injury, rash, and discoloration, 00:04 Eyes: Positive for vision loss, visual disturbance, 00:04 Neuro: Positive for dizziness, headache, 00:04 All other systems are negative, Exam: 00:04 Constitutional: This is a well developed, well nourished patient who is awake, alert, ms3 and in no acute distress. Head/Face: Normocephalic, atraumatic. Neck: Trachea midline, no cervical lymphadenopathy. Supple, full range of motion without nuchal rigidity, or vertebral point tenderness. No Meningismus. Chest/axilla: Normal chest wall appearance and motion. Nontender with no deformity. Cardiovascular: Regular rate and rhythm with a normal S1 and S2. No gallops, murmurs, or rubs. Normal PMI, no JVD. No pulse deficits. Respiratory: Lungs have equal breath sounds bilaterally, clear to auscultation and percussion. No rales, rhonchi or wheezes noted. No increased work of breathing, no retractions or nasal flaring. Abdomen/GI: Soft, non-tender, with normal bowel sounds. No distension or tympany. No guarding or rebound. No evidence of tenderness throughout. Skin: Warm, dry with normal turgor. Normal color with no rashes, no lesions, and no evidence of cellulitis. MS/ Extremity: Pulses equal, no cyanosis. Neurovascular intact. Full, normal range of motion. Neuro: Awake and alert, GCS 15, oriented to person, place, time, and situation. Cranial nerves II-XII grossly intact. Motor strength 5/5 in all extremities. Sensory grossly intact. Cerebellar exam normal. Normal gait. 01:15 ECG was reviewed by the Attending Physician. ms3 01:18 Radiologist reports: CT Head negative ms3 Vital Signs: 07/11 23:50 BP 131 / 78; Pulse 82; Resp 18 S; Temp 98.6(O); Pulse Ox 98% on R/A; Weight 68.04 kg; jw7 Height 5 ft. 1 in. ; Pain 10/10; 07/12 01:00 BP 138 / 76; Pulse 82; Resp 18 S; Pulse Ox 98% on R/A; jw7 01:15 BP 119 / 72; Pulse 86; Resp 17 S; Pulse Ox 96% on R/A; jw7 01:30 BP 130 / 84; Pulse 83; Resp 16 S; Pulse Ox 97% on R/A; jw7 01:45 BP 114 / 57; Pulse 89; Resp 17 S; Pulse Ox 96% on R/A; jw7 02:40 BP 121 / 94; Pulse 77; Resp 14 S; Pulse Ox 98% on R/A; jw7 03:00 BP 127 / 68; Pulse 72; Resp 15 S; Pulse Ox 98% on R/A; jw7 04:00 BP 117 / 77; Pulse 72; Resp 15 S; Pulse Ox 96% on R/A; jw7 07/11 23:50 Body Mass Index 28.34 (68.04 kg, 154.94 cm) 7 07/11 23:50 Pain Scale: Adult jw7 NIH Stroke Scale Scores: 00:04 NIHSS Score: 0 ms3 00:30 NIHSS Score: 2 jw7 MDM: 00:03 Patient medically screened. ms3 05:13 Differential diagnosis: CVA, TIA, Complex migrane. Data reviewed: vital signs, nurses ms3 notes, lab test result(s), EKG, radiologic studies, and as a result, I will admit patient. Consideration of Admission/Observation Patient was admitted/placed on observation. Management of patient was discussed with the following: Hospitalist: Dr Mahoney. I considered the following discharge prescriptions or medication management in the emergency department Medications were administered in the Emergency Department. See MAR. Independent interpretation of the following test(s) in the Emergency Department CT Scan: My interpretation is CT Head without contrast images reviewed do not reveal ICH. Historians other than the Patient: Daughter/Son: Patient's daughter. Counseling: I had a detailed discussion with the patient and/or guardian regarding the historical points, exam findings, and any diagnostic results supporting the discharge/admit diagnosis, lab results, radiology results, the need for further work-up and treatment in the hospital. ED course: Discussed necessity of observation with patient. Patient understands/ agrees with plan. All questions answered.. 07/12 00:04 Order name: Basic Metabolic Panel; Complete Time: 01:07/12 00:04 Order name: CBC with Diff; Complete Time: :07/12 00:04 Order name: High Sensitivity Troponin; Complete Time: :07/12 00:04 Order name: Magnesium; Complete Time: 01:07/12 00:04 Order name: Protime (+inr); Complete Time: 01:07/12 00:04 Order name: Ptt, Activated; Complete Time: :22 00:25 Order name: CREATININE WHOLE BLOOD; Complete Time: 01:05 EDMS 07/12 00:36 Order name: Glucose, Ancillary Testing; Complete Time: 01:05 EDMS 07/12 03:17 Order name: Lipid Profile EDMS 07/12 03:17 Order name: Lipid Profile EDMS 07/12 00:04 Order name: CT Head Angio ms3 07/12 00:04 Order name: CT Neck Angio ms3 07/12 00:04 Order name: CT Stroke Brain w/o Contrast ms3 07/12 00:04 Order name: Stroke CXR 1 View ms3 07/12 03:25 Order name: Echo with Doppler EDMS 07/12 00:04 Order name: EKG; Complete Time: 00:05 ms3 07/12 00:04 Order name: Accucheck; Complete Time: 00:30 ms3 07/12 00:04 Order name: Cardiac monitoring; Complete Time: 01:00 ms3 07/12 00:04 Order name: EKG - Nurse/Tech; Complete Time: 01:00 ms3 07/12 00:04 Order name: IV Saline Lock; Complete Time: 00:30 ms3 07/12 00:04 Order name: Labs collected and sent; Complete Time: 00:30 ms3 07/12 00:04 Order name: NPO; Complete Time: 00:16 ms3 07/12 00:04 Order name: O2 Per Protocol; Complete Time: 01:00 ms3 07/12 00:04 Order name: O2 Sat Monitoring; Complete Time: 01:00 ms3 07/12 00:04 Order name: Stroke Swallow Screen; Complete Time: 01:00 ms3 EC:15 Rate is 80 beats/min. Rhythm is regular. QRS [place] is Normal. IN interval is normal. QRS ms3 interval is normal. QT interval is normal. Clinical impression: Normal ECG. Interpreted by me. Reviewed by me. Administered Medications: 00:45 Drug: Acetaminophen PO 1000 mg PO once Route: PO; jw7 02:59 Follow up: Response: No adverse reaction; Marked relief of symptoms jw7 01:38 Drug: metoCLOPramide IVP 10 mg IVP once; over 1 to 2 minutes Route: IVP; Site: right jw antecubital; 02:59 Follow up: Response: No adverse reaction; Marked relief of symptoms jw7 01:38 Drug: diphenhydrAMINE IVP 25 mg IVP once Route: IVP; Site: right antecubital; jw7 02:59 Follow up: Response: No adverse reaction jw7 01:38 Drug: Ketorolac IVP 10 mg 10 mg IVP once Route: IVP; Site: right antecubital; jw7 02:59 Follow up: Response: No adverse reaction; Marked relief of symptoms jw7 Disposition Summary: 07/12/23 01:29 Hospitalization Ordered Notes: Hospitalization Status: Observation ms3 Provider: Andrew Mahoney ms3 Location: Telemetry/MedSurg (observation) ms3 Condition: Stable ms3 Problem: new ms3 Symptoms: are unchanged ms3 Bed/Room Type: Standard ms3 Room Assignment: [facility]07/12/23 03:24[facility] Diagnosis - Transient cerebral ischemic attack, unspecified ms3 - Right eye vision loss ms3 - Headache ms3 Forms: - Medication Reconciliation Form ms3 - SBAR form ms3 - Leadership Thank You Letter ms3 NIH Stroke Scale - NIH Stroke Score Date: 07/12/2023 Time: 00:04 Total Score = 0 10. Dysarthria (speech clarity - read or repeat words) - 0(Normal) 11. Extinction and Inattention (visual/tactile/auditory/spatial/personal) - 0(No abnormality) 1a. Level of Consciousness (LOC) - 0(Alert) 1b. Level of Consciousness (LOC) (Month \T\ Age) - 0(Both) 1c. LOC Commands (Open \T\ Closes Eyes/Gutter Installer) - 0(Both) 2. Best Gaze (Lateral Gaze Paresis) - 0(Normal) 3. Visual Field Loss - 0(No visual loss) 4. Facial Palsy - 0(Normal) 5a. Left Arm: Motor (10-second hold) - 0(No drift) 5b. Right Arm: Motor (10-second hold) - 0(No drift) 6a. Left Leg: Motor (5-second hold - always test supine) - 0(No drift) 6b. Right Leg: Motor (5-second hold - always test supine) - 0(No drift) 7. Limb Ataxia (finger/nose \T\ heel/chung - test with eyes open) - 0(Absent) 8. Sensory Loss (pinprick arms/legs/face) - 0(Normal) 9. Best Language: Aphasia (description/naming/reading) - 0(No aphasia) Initials: ms3 NIH Stroke Scale - NIH Stroke Score Date: 07/12/2023 Time: 00:30 Total Score = 2 10. Dysarthria (speech clarity - read or repeat words) - 0(Normal) 11. Extinction and Inattention (visual/tactile/auditory/spatial/personal) - 0(No abnormality) 1a. Level of Consciousness (LOC) - 0(Alert) 1b. Level of Consciousness (LOC) (Month \T\ Age) - 0(Both) 1c. LOC Commands (Open \T\ Closes Eyes/Gutter Installer) - 0(Both) 2. Best Gaze (Lateral Gaze Paresis) - 0(Normal) 3. Visual Field Loss - 1(Partial hemianopia) 4. Facial Palsy - 0(Normal) 5a. Left Arm: Motor (10-second hold) - 0(No drift) 5b. Right Arm: Motor (10-second hold) - 0(No drift) 6a. Left Leg: Motor (5-second hold - always test supine) - 0(No drift) 6b. Right Leg: Motor (5-second hold - always test supine) - 1(Drift) 7. Limb Ataxia (finger/nose \T\ heel/chung - test with eyes open) - 0(Absent) 8. Sensory Loss (pinprick arms/legs/face) - 0(Normal) 9. Best Language: Aphasia (description/naming/reading) - 0(No aphasia) Initials: christiane Signatures: Dispatcher [employer] EDMS Kj Leary DO DO ms3 Mizti Coker RN RN jw7 Herlinda Landin km Corrections: (The following items were deleted from the chart) 01:11 01:09 Home Meds: None; jwMinna jw7 03:24 01:29 ms3 f
--- NOTE | 2023-07-12 01:30 | ER ---
Nurse's Notes [facility] Name: Amara Santana Age: 52 yrs Sex: Female : 1970 Arrival Date: 07/11/2023 Time: 23:46 Bed 7 Private MD: Diagnosis: Transient cerebral ischemic attack, unspecified;Right eye vision loss;Headache Presentation: 07/11 23:50 Chief complaint: Patient states: "My vision in my right eye went black, I have a jw7 horrible headache that feels like my head is fixing to explode, and my said I was having some right sided facial droop at home". 23:50 Coronavirus screen: At this time, the client does not indicate any symptoms associated jw7 with coronavirus-19. Ebola Screen: No symptoms or risks identified at this time. Initial Sepsis Screen: Does the patient meet any 2 criteria? No. Patient's initial sepsis screen is negative. Does the patient have a suspected source of infection? No. Patient's initial sepsis screen is negative. Risk Assessment: Do you want to hurt yourself or someone else? Patient reports no desire to harm self or others. Onset of symptoms was July 11, 2023 at 22:00. 23:50 Method Of Arrival: Wheelchair jw7 23:50 Acuity: PATEL 2 jw7 Triage Assessment: 23:50 General: Appears in no apparent distress. uncomfortable, Behavior is calm, cooperative. jw7 Pain: Complains of pain in Head Pain does not radiate. Pain currently is 10 out of 10 on a pain scale. Quality of pain is described as pressure, throbbing, Pain began 2 hours ago. Is continuous. EENT: No deficits noted. No signs and/or symptoms were reported regarding the EENT system. Neuro: Level of Consciousness is awake, alert, obeys commands, Oriented to person, place, time, situation. Cardiovascular: Heart tones S1 S2 present Capillary refill < 3 seconds Clubbing of nail beds is absent JVD is absent Patient's skin is warm and dry. Respiratory: Airway is patent Trachea midline Respiratory effort is even, unlabored, Respiratory pattern is regular, symmetrical, Breath sounds are clear bilaterally. GI: Abdomen is round non-distended, Bowel sounds present X 4 quads. Abd is soft and non tender X 4 quads. : No deficits noted. No signs and/or symptoms were reported regarding the genitourinary system. Derm: Skin is intact, is healthy with good turgor, Skin is dry, Skin is normal, Skin temperature is warm. Musculoskeletal: Circulation, motion, and sensation intact. Range of motion: intact in all extremities. ACCOUNT RECEIVABLE CLERK: 23:50 LMP N/A - Hysterectomy, Not jw7 Historical: - Allergies: 07/12 01:09 No Known Allergies; jw7 - Home Meds: :09 None [Active]; jw7 - PMHx: 01:09 Heart Murmur; mitral valve prolapse; Pulmonary Stenosis; jw7 - PSHx: :09 partial hysterectomy; Heart Cath X2 (partial hysterectomy); jw7 - Immunization history:: Adult Immunizations up to date, Client reports having NOT received the Covid vaccine. Last tetanus immunization: > 10 years ago Flu vaccine is not up to date. - Social history:: Smoking status: Patient reports the use of cigarette tobacco products, smokes one-half pack cigarettes per day, Patient uses alcohol, occasionally. Patient/guardian denies using street drugs, IV drugs. Screenin:00 [facility] ED Fall Risk Assessment (Adult) History of falling in the last 3 months, jw7 including since admission No falls in past 3 months (0 pts) Score/Fall Risk Level 0 - 2 = Low Risk Oriented to surroundings, Maintained a safe environment, Educated pt \\T\\ family on fall prevention, incl call for assistance when getting out of bed. Abuse screen: Denies threats or abuse. Denies injuries from another. Nutritional screening: No deficits noted. Tuberculosis screening: No symptoms or risk factors identified. 00:40 Mercedes Swallow Protocol Exclusion Criteria: Exclusion Criteria Result: Proceed Brief jw7 Cognitive Screen What is your name? Normal, Where are you right now? Normal, What year is it? Normal. Oral Mechanism Examination Facial Symmetry: Normal, Motion: Normal, Lip Closure: Normal, Oral Mechanism Result: Normal. 3 oz Water Swallow Challenge: Pt able to drink all water without stopping, coughing, choking or throat clearing: Yes Result: PASS. Assessment: 00:00 General: See triage assessment. jw7 00:45 General: Gave prescribed medication PO, pt had difficulty swallowing the pills after jw7 passing the Stroke Swallow Screen, Provider notified. . 01:00 Reassessment: Patient appears in no apparent distress at this time. No changes from [facility] previously documented assessment. Patient and/or family updated on plan of care and expected duration. Pain level reassessed. Patient is alert, oriented x 3, equal unlabored respirations, skin warm/dry/pink. 02:00 Reassessment: Patient appears in no apparent distress at this time. No changes from [facility] previously documented assessment. Patient and/or family updated on plan of care and expected duration. Pain level reassessed. Patient is alert, oriented x 3, equal unlabored respirations, skin warm/dry/pink. 03:00 Reassessment: Patient appears in no apparent distress at this time. Patient and/or jw7 family updated on plan of care and expected duration. Pain level reassessed. Patient is alert, oriented x 3, equal unlabored respirations, skin warm/dry/pink. Patient states feeling better. Patient states symptoms have improved. 04:00 Reassessment: Patient appears in no apparent distress at this time. No changes from [facility] previously documented assessment. Patient and/or family updated on plan of care and expected duration. Pain level reassessed. Patient is alert, oriented x 3, equal unlabored respirations, skin warm/dry/pink. Vital Signs: 07/11 23:50 BP 131 / 78; Pulse 82; Resp 18 S; Temp 98.6(O); Pulse Ox 98% on R/A; Weight 68.04 kg; jw7 Height 5 ft. 1 in. ; Pain 10/10; 07/12 01:00 BP 138 / 76; Pulse 82; Resp 18 S; Pulse Ox 98% on R/A; jw7 01:15 BP 119 / 72; Pulse 86; Resp 17 S; Pulse Ox 96% on R/A; jw7 01:30 BP 130 / 84; Pulse 83; Resp 16 S; Pulse Ox 97% on R/A; jw7 01:45 BP 114 / 57; Pulse 89; Resp 17 S; Pulse Ox 96% on R/A; jw7 02:40 BP 121 / 94; Pulse 77; Resp 14 S; Pulse Ox 98% on R/A; jw7 03:00 BP 127 / 68; Pulse 72; Resp 15 S; Pulse Ox 98% on R/A; jw7 04:00 BP 117 / 77; Pulse 72; Resp 15 S; Pulse Ox 96% on R/A; jw7 07/11 23:50 Body Mass Index 28.34 (68.04 kg, 154.94 cm) jw7 07/11 23:50 Pain Scale: Adult jw7 NIH Stroke Scale Scores: 00:04 NIHSS Score: 0 ms3 00:30 NIHSS Score: 2 jw7 ED Course: 07/11 23:50 Arm band placed on. jw7 23:52 Patient arrived in ED. ms3 23:52 Kj Leary DO is Attending Physician. ms3 07/12 00:00 Patient has correct armband on for positive identification. Bed in low position. Call [facility] light in reach. 00:17 CT Head Angio In Process Unspecified. EDMS 00:18 CT Neck Angio In Process Unspecified. EDMS 00:18 CT Stroke Brain w/o Contrast In Process Unspecified. EDMS 00:22 Stroke CXR 1 View In Process Unspecified. EDMS 00:30 Initial lab(s) drawn, by me, sent to lab. Inserted saline lock: 22 gauge in right [facility] antecubital area, using aseptic technique. Blood collected. 01:09 Triage completed. jw7 01:26 Andrew Mahoney MD is Hospitalizing Provider. ms3 01:39 No provider procedures requiring assistance completed. Patient admitted, IV remains in [address] place. 01:39 Provided Education on: need for admit. jw7 Administered Medications: 00:45 Drug: Acetaminophen PO 1000 mg PO once Route: PO; jw7 02:59 Follow up: Response: No adverse reaction; Marked relief of symptoms jw7 01:38 Drug: metoCLOPramide IVP 10 mg IVP once; over 1 to 2 minutes Route: IVP; Site: right [facility] antecubital; 02:59 Follow up: Response: No adverse reaction; Marked relief of symptoms jw7 01:38 Drug: diphenhydrAMINE IVP 25 mg IVP once Route: IVP; Site: right antecubital; jw7 02:59 Follow up: Response: No adverse reaction jw7 01:38 Drug: Ketorolac IVP 10 mg 10 mg IVP once Route: IVP; Site: right antecubital; jw7 02:59 Follow up: Response: No adverse reaction; Marked relief of symptoms jw7 Medication: 01:38 VIS not applicable for this client. jw7 Outcome: 01:29 Decision to Hospitalize by Provider. ms3 04:39 Patient left the ED. jw7 NIH Stroke Scale - NIH Stroke Score Date: 07/12/2023 Time: 00:04 Total Score = 0 10. Dysarthria (speech clarity - read or repeat words) - 0(Normal) 11. Extinction and Inattention (visual/tactile/auditory/spatial/personal) - 0(No abnormality) 1a. Level of Consciousness (LOC) - 0(Alert) 1b. Level of Consciousness (LOC) (Month \\T\\ Age) - 0(Both) 1c. LOC Commands (Open \\T\\ Closes Eyes/Hydrometer Tester) - 0(Both) 2. Best Gaze (Lateral Gaze Paresis) - 0(Normal) 3. Visual Field Loss - 0(No visual loss) 4. Facial Palsy - 0(Normal) 5a. Left Arm: Motor (10-second hold) - 0(No drift) 5b. Right Arm: Motor (10-second hold) - 0(No drift) 6a. Left Leg: Motor (5-second hold - always test supine) - 0(No drift) 6b. Right Leg: Motor (5-second hold - always test supine) - 0(No drift) 7. Limb Ataxia (finger/nose \\T\\ heel/chung - test with eyes open) - 0(Absent) 8. Sensory Loss (pinprick arms/legs/face) - 0(Normal) 9. Best Language: Aphasia (description/naming/reading) - 0(No aphasia) Initials: ms3 NIH Stroke Scale - NIH Stroke Score Date: 07/12/2023 Time: 00:30 Total Score = 2 10. Dysarthria (speech clarity - read or repeat words) - 0(Normal) 11. Extinction and Inattention (visual/tactile/auditory/spatial/personal) - 0(No abnormality) 1a. Level of Consciousness (LOC) - 0(Alert) 1b. Level of Consciousness (LOC) (Month \\T\\ Age) - 0(Both) 1c. LOC Commands (Open \\T\\ Closes Eyes/Hydrometer Tester) - 0(Both) 2. Best Gaze (Lateral Gaze Paresis) - 0(Normal) 3. Visual Field Loss - 1(Partial hemianopia) 4. Facial Palsy - 0(Normal) 5a. Left Arm: Motor (10-second hold) - 0(No drift) 5b. Right Arm: Motor (10-second hold) - 0(No drift) 6a. Left Leg: Motor (5-second hold - always test supine) - 0(No drift) 6b. Right Leg: Motor (5-second hold - always test supine) - 1(Drift) 7. Limb Ataxia (finger/nose \\T\\ heel/chung - test with eyes open) - 0(Absent) 8. Sensory Loss (pinprick arms/legs/face) - 0(Normal) 9. Best Language: Aphasia (description/naming/reading) - 0(No aphasia) Initials: christiane Signatures: Dispatcher [employer] EDMS Kj Leary, DO ms3 Mitzi Coker RN RN jw7 Corrections: (The following items were deleted from the chart) 01:11 01:09 Home Meds: None; christiane jw7 04:24 02:51 BP 121 / 94; Pulse 77bpm; Resp 14bpm; Spontaneous; Pulse Ox 98% RA; christiane jw7
[2023-07-12] MEDS ORDERED: ONDANSETRON 4 MG/2 ML VIAL IV PRN (03:11)
--- NOTE | 2023-07-12 03:11 | P.HP ---
Certification for Inpatient Patient admitted to: Observation With expected LOS: <2 Midnights Practitioner: I am a practitioner with admitting privileges, knowledge of patient current condition, hospital course, and medical plan of care. Services: Services provided to patient in accordance with Admission requirements found in Title 42 Section 412.3 of the Code of Federal Regulations Patient History Date of Service: 07/12/23 Reason for admission: Facial weakness, headache. History of Present Illness: 52-year-old female patient with medical history significant for hyperlipidemia, hypertension who came to ED with complaint of facial droop and weakness and headache. She has a history of recurrent headache and facial droop for the past couple of days and also has a history of tachycardia which was being worked up in the past. No significant finding was noted on left heart cath. She denies overt episode of fever, chills, nausea, vomiting, diarrhea. She denies double vision. In the ED CTA of the head and neck was done with a CT of the brain that showed no overt acute abnormality. She was admitted for TIA/CVA workup. Allergies No Known Allergies Allergy (Uncoded 12/13/16 13:06) Unknown Home Medications: Atorvastatin Calcium [Lipitor] 40 mg PO BEDTIME #30 tab 12/15/18 lisinopriL [Prinivil*] 10 mg PO DAILY #30 tab 12/15/18 - Past Medical/Surgical History Diabetic: No -: mitral valve prolapse -: heart murmer - Social History Alcohol use: Yes CD- Drugs: No Caffeine use: No Review of Systems General: Unremarkable Eyes: Unremarkable ENT: Unremarkable Respiratory: Unremarkable Cardiovascular: Unremarkable Gastrointestinal: Unremarkable Genitourinary: Unremarkable Musculoskeletal: Unremarkable Integumentary: Unremarkable Neurological: Weakness, As per HPI Lymphatics: Unremarkable Physical Examination - Physical Exam General: Alert, Oriented x3 HEENT: Atraumatic Neck: Supple Respiratory: Normal air movement Cardiovascular: Regular rate/rhythm, Normal S1 S2 Gastrointestinal: Soft and benign Musculoskeletal: No swelling Neurological: Normal speech, Normal strength at 5/5 x4 extr - Studies Laboratory Data (last 24 hrs) 07/12/23 07/12/23 07/12/23 00:25 00:25 00:25 WBC 6.60 Hgb 15.0 Hct 43.5 Plt Count 275 PT 11.1 INR 1.01 APTT 39.8 H Sodium 138 Potassium 3.7 BUN 9 Creatinine 0.64 Glucose 81 Magnesium 2.3 Assessment and Plan - Plan TIA/CVA: Patient does have significant clinical findings suggestive of TIA/CVA. Workup with echocardiogram, lipid panel pending prednisone continue atorvastatin and aspirin therapy. We will evaluate patient based on finding on echocardiogram and continue telemetry. Neurology to consult as needed. History of hypertension: We will monitor vital signs per unit protocol and continue outpatient antihypertensive medication of lisinopril. Hyperlipidemia: Continue atorvastatin and with review repeat lipid panel today. Prophylaxis: Lovenox for DVT prophylaxis. CODE STATUS: Full code. Disposition: Will treat suspected CVA/TIA and discharge her once clinically cleared - Advance Directives Does patient have a Living Will: No Does patient have a Durable POA for Healthcare: No
[2023-07-12] MEDS ORDERED: NICOTINE 14 MG/PAT TD SCH ×2 (04:48→21:00)
[2023-07-12] MEDS: ACETAMINOPHEN 325 MG TABLET PO PRN ×3 (05:07→21:04)
[2023-07-12 05:13] VITALS: O2SAT 96
[2023-07-12 05:57] VITALS: BMI 28.3
[2023-07-12] MEDS: ENOXAPARIN 40 MG/0.4 ML SQ SCH (08:27)
[2023-07-12] MEDS: ASPIRIN 81 MG CHEWABLE TABLET PO SCH (08:27)
--- NOTE | 2023-07-12 10:00 | P.PN ---
Subjective Date of Service: 07/12/23 Chief Complaint: Facial weakness, headache. Pt is resting comfortably in bed. She reports that the symptoms have resolved. No right facial droop. Waiting for MRI brain. No other complaints. Review of Systems Unremarkable General: Unremarkable Eyes: Unremarkable ENT: Unremarkable Respiratory: Unremarkable Cardiovascular: Unremarkable Gastrointestinal: Unremarkable Genitourinary: Unremarkable Musculoskeletal: Unremarkable Neurological: Unremarkable Lymphatics: Unremarkable Physical Examination - Vital Signs Temperature: 97.6 F Blood Pressure: 141/70 Pulse: 73 Respirations: 16 Pulse Ox (%): 95 - Physical Exam General: Alert, In no apparent distress, Oriented x3 HEENT: Atraumatic, Normocephalic, PERRLA Neck: Supple, 2+ carotid pulse no bruit Respiratory: Clear to auscultation bilaterally, Normal air movement Cardiovascular: No edema, Normal pulses, Regular rate/rhythm, Normal S1 S2 Capillary refill: <2 Seconds Gastrointestinal: Normal bowel sounds, Soft and benign, Non-distended Musculoskeletal: No clubbing, No swelling Integumentary: No rashes, No breakdown Neurological: Normal speech, Normal strength at 5/5 x4 extr, Normal tone, Sensation intact Lymphatics: No axilla or inguinal lymphadenopathy - Studies Laboratory Data (last 24 hrs) 07/12/23 07/12/23 07/12/23 00:25 00:25 00:25 WBC 6.60 Hgb 15.0 Hct 43.5 Plt Count 275 PT 11.1 INR 1.01 APTT 39.8 H Sodium Potassium BUN Creatinine Glucose Magnesium Triglycerides 258 H Cholesterol 207 H HDL Cholesterol 43 Cholesterol/HDL Ratio 4.81 07/12/23 00:25 WBC Hgb Hct Plt Count PT INR APTT Sodium 138 Potassium 3.7 BUN 9 Creatinine 0.64 Glucose 81 Magnesium 2.3 Triglycerides Cholesterol HDL Cholesterol Cholesterol/HDL Ratio Assessment And Plan - Plan TIA/CVA: Pt had right facial droop on admission. CT head is pending. Will follow MRI brain, Echo and CTA head and neck. Consulted Neurology. Allow permissive htn. Continue aspirin and statin. Check lipid panel. History of hypertension: Will allow permissive htn until we rule out CVA. Pt takes lisinopril at home. Hyperlipidemia: Continue atorvastatin. Follow up lipid panel. Prophylaxis: Lovenox for DVT prophylaxis. CODE STATUS: Full code. Disposition: pending hospital course
--- NOTE | 2023-07-12 10:18 | RAD REPORT ---
EXAM DESCRIPTION: MRI - Brain Wo Cont - 07/12/2023 9:05 am CLINICAL HISTORY: rule out CVA Headache, drowsiness, CVA symptomology COMPARISON: Head angio dated 07/12/2023 TECHNIQUE: Multi-sequence, multiplanar MR imaging of the brain was performed without contrast. FINDINGS: No intracranial hemorrhage, hydrocephalus or extra-axial fluid collections. No edema or sh ift of midline structures. No findings to suspect brain mass. DWI is negative for acute CVA. Midline structures are normally formed. Mastoid air cells and paranasal sinuses are clear. IMPRESSION: Negative for acute CVA or other acute intracranial abnormality.
--- NOTE | 2023-07-12 11:49 | RAD REPORT ---
EXAM DESCRIPTION: ADDENDUM #1 Urgent finding reported to Dr. Leary at 07/12/2023 12:33 AM GROUP TEACHER Electronically signed by: Roel Salazar DO 07/12/2023 12:37 AM GROUP TEACHER M End of Addendum EXAM DESCRIPTION: CT of the head without contrast CLINICAL HISTORY: STROKE ALERT COMPARISON: None available TECHNIQUE: Axial CT of the head obtained from the skull apex to the skull base without contrast. Thi s exam was performed according to our departmental dose-optimization program, which includes automate d exposure control, adjustment of the mA and/or kV according to patient size and/or use of iterative reconstruction technique. FINDINGS: No acute intracranial hemorrhage identified. No mass, mass effect, shift of the midline, a bnormal extra-axial fluid collection or CT evidence of acute ischemic change identified. The ventricu lar system and sulcal spaces are age appropriate. Scattered areas of hypodensity throughout the sup ratentorial white matter are nonspecific and may be related to chronic small vessel ischemic change. Remote left basal ganglia lacunar type infarction. The visualized paranasal sinuses and the mastoids are clear. No skull fracture identified. Visualiz ed orbits and globes are unremarkable. Atherosclerotic calcification of the intracranial internal car otid arteries. IMPRESSION: 1. No acute intracranial abnormality by CT criteria. Electronically signed by: Roel Salazar DO 07/12/2023 12:29 AM GROUP TEACHER M Due to temporary technical issues with the PACS/Fluency reporting system, reports are being signed by the in house radiologist without review as a courtesy to ensure prompt reporting. The interpreting r adiologist is fully responsible for the content of the report.
--- NOTE | 2023-07-12 12:03 | RAD REPORT ---
EXAM DESCRIPTION: Head angio (accession [id number]), Neck Angio (accession [id number]) CLINICAL HISTORY: 52 years, Female, STROKE ALERT COMPARISON: None. TECHNIQUE: Axial CTA images of the head and neck obtained following the uncomplicated intravenous ad ministration of iodinated contrast. 3-D/MIP reformatted images available. This exam was performed acc ording to our departmental dose-optimization program, which includes automated exposure control, adju stment of the mA and/or kV according to patient size and/or use of iterative reconstruction technique . FINDINGS: CTA head: Significant motion artifact. In the anterior circulation, the intracranial internal carotid arteries have normal course and calibe r. Atherosclerotic calcification of the paraclinoid intracranial internal carotid arteries. The inter nal carotid arteries bifurcate into patent A1 and M1 segments of the anterior and middle cerebral art eries respectively. No evidence of large vessel occlusion in the anterior circulation. The anterior c ommunicating artery is patent. In the posterior circulation, the intracranial vertebral arteries combine to form a patent basilar ar rupali. The basilar artery bifurcates into widely patent P1 segments of the posterior cerebral artery. No evidence of large vessel occlusion in the posterior circulation. No definite acute intracranial abnormality identified. No acute abnormality of the osseous calvarium. No gross thickening of the paranasal sinuses.. CTA NECK: The aortic arch has normal anatomic configuration. The origin of the great vessels are widely patent. The right common carotid artery is widely patent and bifurcates into widely patent internal and exter nal carotid arteries. 0% stenosis by NASCET criteria. No evidence of occlusion or dissection. The left common carotid artery is widely patent and bifurcates into widely patent internal and agency manager al carotid arteries. Mild calcified and soft atherosclerotic plaque at the left carotid bulb. 0% sten osis by NASCET criteria. No evidence of occlusion or dissection. The cervical vertebral arteries are widely patent throughout their course. No evidence of occlusion, stenosis, or dissection. No definite acute abnormalities in the neck soft tissues. No apical pneumothorax. No acute osseous ab normalities. IMPRESSION: 1. No evidence of large vessel occlusion in the intracranial arterial circulation. 2. No evidence of flow-limiting stenosis/occlusion of the cervical carotid or vertebral arteries. Electronically signed by: Roel Salazar DO 07/12/2023 12:35 AM STAGECRAFT PROFESSOR M Due to temporary technical issues with the PACS/Fluency reporting system, reports are being signed by the in house radiologist without review as a courtesy to ensure prompt reporting. The interpreting r adiologist is fully responsible for the content of the report.
--- NOTE | 2023-07-12 12:04 | RAD REPORT ---
EXAM DESCRIPTION: Head angio (accession [id number]), Neck Angio (accession [id number]) CLINICAL HISTORY: 52 years, Female, STROKE ALERT COMPARISON: None. TECHNIQUE: Axial CTA images of the head and neck obtained following the uncomplicated intravenous ad ministration of iodinated contrast. 3-D/MIP reformatted images available. This exam was performed acc ording to our departmental dose-optimization program, which includes automated exposure control, adju stment of the mA and/or kV according to patient size and/or use of iterative reconstruction technique . FINDINGS: CTA head: Significant motion artifact. In the anterior circulation, the intracranial internal carotid arteries have normal course and calibe r. Atherosclerotic calcification of the paraclinoid intracranial internal carotid arteries. The inter nal carotid arteries bifurcate into patent A1 and M1 segments of the anterior and middle cerebral art eries respectively. No evidence of large vessel occlusion in the anterior circulation. The anterior c ommunicating artery is patent. In the posterior circulation, the intracranial vertebral arteries combine to form a patent basilar ar rupali. The basilar artery bifurcates into widely patent P1 segments of the posterior cerebral artery. No evidence of large vessel occlusion in the posterior circulation. No definite acute intracranial abnormality identified. No acute abnormality of the osseous calvarium. No gross thickening of the paranasal sinuses.. CTA NECK: The aortic arch has normal anatomic configuration. The origin of the great vessels are widely patent. The right common carotid artery is widely patent and bifurcates into widely patent internal and exter nal carotid arteries. 0% stenosis by NASCET criteria. No evidence of occlusion or dissection. The left common carotid artery is widely patent and bifurcates into widely patent internal and assembler hydraulic backhoe al carotid arteries. Mild calcified and soft atherosclerotic plaque at the left carotid bulb. 0% sten osis by NASCET criteria. No evidence of occlusion or dissection. The cervical vertebral arteries are widely patent throughout their course. No evidence of occlusion, stenosis, or dissection. No definite acute abnormalities in the neck soft tissues. No apical pneumothorax. No acute osseous ab normalities. IMPRESSION: 1. No evidence of large vessel occlusion in the intracranial arterial circulation. 2. No evidence of flow-limiting stenosis/occlusion of the cervical carotid or vertebral arteries. Electronically signed by: Roel Salazar DO 07/12/2023 12:35 AM AUDITOR APPRAISER M Due to temporary technical issues with the PACS/Fluency reporting system, reports are being signed by the in house radiologist without review as a courtesy to ensure prompt reporting. The interpreting r adiologist is fully responsible for the content of the report.
--- NOTE | 2023-07-12 12:06 | RAD REPORT ---
EXAM DESCRIPTION: Chest Single View CLINICAL HISTORY: Stroke aler COMPARISON: None. FINDINGS: Single frontal radiograph view of the chest. Cardiomediastinal silhouette: Normal size and contour. Lungs: No consolidation, pneumothorax, or pleural effusion. Bones: No acute osseous abnormality. Upper abdomen: No abnormality identified. IMPRESSION: 1. No acute pulmonary process identified. Electronically signed by: Roel Salazar DO 07/12/2023 12:29 AM ANTIQUE REFINISHER Due to temporary technical issues with the PACS/Fluency reporting system, reports are being signed by the in house radiologist without review as a courtesy to ensure prompt reporting. The interpreting r adiologist is fully responsible for the content of the report.
--- NOTE | 2023-07-12 13:25 | ECHO ---
HEIGHT: 5 ft 1 in WEIGHT: 149 lb 11.2 oz DATE OF STUDY: 07/12/[address]: Andrew Mahoney MD 2-DIMENSIONAL: YES M.MODE: YES DOPPLER: YES COLOR FLOW: YES TDS: PORTABLE: YES DEFINITY: BUBBLE STUDY: DIAGNOSIS: PATIENT WITH TRANSIENT ISCHEMIC ATTACK SYMPTOMS CARDIAC HISTORY: CATHERIZATION: YES SURGERY: NO PROSTHETIC VALVE: NO PACEMAKER: NO MEASUREMENTS (cm) DIASTOLIC (NORMALS) SYSTOLIC (NORMALS) IVSd 1.1 (0.6-1.2) LA Diam 2.4 (1.9-4.0) LVEF 56% LVIDd 3.9 (3.5-5.7) LVIDs 2.8 (2.0-3.5) %FS 29% LVPWd 1.1 (0.6-1.2) Ao Diam 3.0 (2.0-3.7) 2 DIMENSIONAL ASSESSMENT: RIGHT ATRIUM: NORMAL LEFT ATRIUM: NORMAL RIGHT VENTRICLE: NORMAL LEFT VENTRICLE: NORMAL TRICUSPID VALVE: NORMAL MITRAL VALVE: NORMAL PULMONIC VALVE: NORMAL AORTIC VALVE: NORMAL PERICARDIAL EFFUSION: NONE AORTIC ROOT: NORMAL LEFT VENTRICULAR WALL MOTION: NORMAL DOPPLER/COLOR FLOW: NORMAL COMMENTS: 1. NORMAL LEFT VENTRICULAR EJECTION FRACTION 55-60% 2. NORMAL WALL MOTION 3. GRADE I DIASTOLIC DYSFUNCTION TECHNOLOGIST: FLORENCE DA SILVA
--- NOTE | 2023-07-12 16:52 | EKG ---
Test Date: 2023-07-12 Test Time: 00:55:48 Maid Housekeeper: OMER MEASUREMENT RESULTS: Intervals: Rate: 80 AR: 178 QRSD: 116 QT: 410 QTc: 472 [place]: P: 82 AR: 178 QRS: 28 T: 47 INTERPRETIVE STATEMENTS: Normal sinus rhythm Normal ECG Compared to ECG 12/24/2021 09:20:45 No significant changes Electronically Signed On 07-12-23 16:51:04 FARM LOAN INSPECTOR by Baudilio Fitch
[2023-07-12] MEDS ORDERED: ATORVASTATIN 40 MG TAB PO SCH (21:00)
[2023-07-12] MEDS ORDERED: TRAZODONE 50 MG TABLET PO ONE (21:15)
[2023-07-13 06:17] LABS: Absolute Lymphocytes (CBC) 2.6 K/uL (0.7-4.9); Hematocrit 37.7 % (36.0-45.0); Lymphocytes % 34.6 % (15.3-44.8); MCV 92.9 fL (80-100); MPV 8.5 fL (7.6-11.3); Platelets 225 thou/uL (152-406); RBC Red Blood Cell Count 4.05 M/uL (3.86-4.86)
[2023-07-13] MEDS: ACETAMINOPHEN 325 MG TABLET PO PRN (06:31)
[2023-07-13 06:39] LABS: Potassium 3.9 mEq/L (3.5-5.1)
--- NOTE | 2023-07-13 07:26 | P.PN ---
Date of Service: 07/13/23 Subjective: Physical Exam: Vitals: reviewed GEN: Alert, oriented, NAD HEENT: Normal conjunctiva, sclera anicteric CV: Regular rate & rhythm, no edema Pulm: Nonlabored respiraitons, clear bilaterally ABD: Soft, nontender, nondistended Neuro: Normal speech, normal affect Problem List: TIA/CVA Hypertension Hyperlipidemia Plan: TIA/CVA MRI brain (07/12): negative for acute CVA CT brain (07/12): negative for any acute intracranial abnormalities. CTA neck/head (07/12): no large vessel occlusions. No flow-limiting stenosis echo (07/12): 56% EF, grade 1 diastolic dysfunction. patient had right facial droop on admission Neurology consulted monitor on tele Speech consulted - no s/s of aspiration noted Hypertension allow for permissive HTN until CVA r/o. Takes lisinopril at home Hyperlipidemia continue statin DVT ppx: lovenox
[2023-07-13] MEDS: ASPIRIN 81 MG CHEWABLE TABLET PO SCH (08:32)
[2023-07-13] MEDS: ENOXAPARIN 40 MG/0.4 ML SQ SCH (08:32)
[2023-07-13] MEDS ORDERED: SUMATRIPTAN SUCCI 50 MG TAB PO PRN ×2 (14:16→14:39)
[2023-07-13] MEDS ORDERED: SUMATRIPTAN SUCC 6MG/0.5ML VIAL SQ ONE (14:30)
[2023-07-13] MEDS ORDERED: TOPIRAMATE 25 MG TAB PO ONE (14:30)
[2023-07-13 19:10] VITALS: BP 193/99; TEMP 97.1
--- NOTE | 2023-07-13 19:24 | CON ---
Reason For Consultation: Consultation called because of headache with facial weakness. History Of Present Illness: Ms. Santana is a 52-year-old patient with history of dyslipidemia and hyp ertension, who was noncompliant with medications and who reports having 3 bad headaches over the last week and a half. Most significant one occurred that led to hospitalization was a severe headache wi th right facial drooping in the last several hours, associated with elevated heart rate. She came to [facility] and was ruled out for myocardial infarction and had a cardiac catheterization wi th no significant abnormalities identified. She did not have significant nausea, vomiting, myalgias, arthralgias, double vision, or other findings. A subsequent stroke evaluation including brain MRI s [facility] protocol ruled out any acute ischemic or hemorrhagic stroke. The study was normal. CT angiogr am studies of her head and neck showed no significant abnormalities. She did have an echocardiogram, again no significant abnormalities identified as well. Her laboratory studies showed a completely n ormal complete blood count with differential. INR normal and her basic metabolic panel all normal. Her cholesterol was elevated to 207 with LDL 112 and HDL 43. Her cholesterol/HDL ratio 4.81, triglyc erides elevated at 258. Otherwise, she had normal glucose, normal BUN, creatinine, magnesium, sodium , potassium all normal. She did receive Tylenol, which did not improve the headache. She was now given Imitrex 6 mg subcutan eously and started on Topamax 25 mg at night. She received 6 mg subcutaneous Imitrex and her pain we nt from 9/10 to 0/10 in about 20 minutes. She was then ready for discharge home with followup with [facility]. Past Medical History: As noted. Bladder valve prolapse. Allergies: NO KNOWN DRUG ALLERGIES. Medications: Which should be taking at home, but she is not doing, Lipitor 40 mg at bedtime, Prinivi l 10 mg daily. Social History: The patient said in the past she drank alcohol heavily, but has more recently stoppe d drinking so much alcohol and denies smoking heavily, which she did in the past. Family History: Noncontributory. Review of Systems: Again 3 significant headaches involving whole head, pain of 10/10 with some light and sound sensitivi ty and the facial drooping as noted and those as of now resolved after the Imitrex. In addition on r eview of systems, no cardiovascular issues. No musculoskeletal, genitourinary, or other issues. No dermatological issues. Physical Examination: Vital Signs: Blood pressure 164/79, pulse 68, respiratory rate 16, temperature 96.9, oxygen saturati on 96%, weight 149 pounds, height 5 feet 1 inch, BMI 28.3. General: Ms. Santana is in bed. She is in no acute distress. HEENT: She is normocephalic, atraumatic. Sclerae anicteric. Oropharynx is pink and moist. Neck: Supple. Chest: Clear. Heart: Regular. Extremities: Show no clubbing, cyanosis, or edema. Neurological: She is alert and oriented to person, place, situation, and time. Follows all commands appropriately. No cranial nerve deficits noted at this point. No focal motor, coordination, gait, sensory deficits, all unremarkable. Assessment: Ms. Santana is a 52-year-old patient with significant migraine headache, relieved by Imit francisco javier, and she now has Topamax 25 mg daily. She drank heavily in the past and smoke tobacco cigarettes heavily as well. She has some dyslipidemia and hypertension and has not been compliant with medicat ions. Plan: 1.She may be discharged home. May use Imitrex as needed 50 mg orally and may repeat in an hour if h bindu is still there, Topamax 25 mg at night. She is advised to take her prescription medications as ordered. 2.Maintain a headache diary. 3.Drink 8 glasses of water daily. 4.Follow up with [facility] within the month. JOHN/WENDY Voice ID: [id number] Report ID: [id number]
[2023-07-13] MEDS ORDERED: TOPIRAMATE 25 MG TAB PO SCH (21:00)
== END 2023-07-13 17:55 | disposition home or self-care (01) ==
LOC: ER 23:46 → 2ND 07-12 03:11
PROVIDERS: ADMIT Internal Medicine Nephrology; ATTEND Hospitalist
DX: R51.9 Headache, unspecified (principal); E78.5 Hyperlipidemia, unspecified; I10 Essential (primary) hypertension; F10.21 Alcohol dependence, in remission; Z87.891 Personal history of nicotine dependence
CPT/HCPCS: 93005; 93306; 85025 ×2; 80048 ×2; 36415 ×2; 83735; 85610; 80061; 82565; 82947; 85730; 84484; 70496; 70498; 70450; 71045; 70551; 92523; 92610; Q9967; J3030; J2765; J1200; J1650 ×2; G0378